=== PATIENT | male | born 1935 | race Caucasian/White ===

== ENCOUNTER 2018-01-18 13:13 | Inpatient (IN) | payer MEDICARE, BC ==
[2018-01-18] MEDS ORDERED: IBUPROFEN 600 MG TAB PO STA (13:30)
[2018-01-18] MEDS ORDERED: ACETAMINOPHEN TAB 500 MG TAB PO STA (13:30)
--- NOTE | 2018-01-18 13:34 | ED ---
General Adult HPI - General Chief complaint: Fever Stated complaint: NEAR SYNCOPE Time Seen by Provider: 01/18/18 13:21 Source: patient, family, EMS, RN notes reviewed Mode of arrival: EMS Limitations: no limitations - History of Present Illness Initial comments: Patient is a pleasant 82-year-old male presenting to the emergency department for weakness and possible syncopal episode. Onset of symptoms started throughout the night. Patient has been shaking. Patient has been urinating more than normal. Patient went to the bathroom prior to arrival and did fall down. Unclear patient lost consciousness or not. Patient does not recall the episode very well. Patient feels weak all over without isolated area of weakness. Patient denies confusion. states patient did seem confused when she found him in the bathroom. Patient denies any injury. No cough. No dyspnea. No abdominal pain. Patient was unaware of fever. - Related Data Home Medications Medication Instructions Recorded Confirmed Leflunomide [Arava] 20 mg PO DAILY 11/12/13 01/18/18 Lisinopril-Hctz 10-12.5 mg 1 tab PO DAILY 01/18/18 01/18/18 [Zestoretic 10-12.5] predniSONE 15 mg PO DAILY 01/18/18 01/18/18 Allergies Allergy/AdvReac Type Severity Reaction Status Date / Time methotrexate Allergy Swelling Verified 01/18/18 14:34 Review of Systems ROS Statement: Those systems with pertinent positive or pertinent negative responses have been documented in the HPI. ROS Other: All systems not noted in ROS Statement are negative. Constitutional: Denies: fever Eyes: Denies: eye pain ENT: Denies: ear pain Respiratory: Denies: cough, dyspnea Cardiovascular: Denies: chest pain Endocrine: Reports: fatigue Gastrointestinal: Denies: abdominal pain Genitourinary: Reports: frequency. Denies: dysuria Musculoskeletal: Reports: back pain (Chronic and unchanged), arthralgia ( Chronic and unchanged) Skin: Denies: rash Neurological: Reports: weakness (Generalized) Past Medical History Past Medical History: Heart Failure, Memory Impairment, Osteoarthritis (OA), Pneumonia, Rheumatoid Arthritis (RA) Additional Past Medical History / Comment(s): Patient relates it is a history of rheumatoid arthritis and has received 4 injections of Remicade. He relates a very little improvement since this has begun. Of note he's had pneumonia in the iliopsoas abscess since this medication has started. History of Any Multi-Drug Resistant Organisms: None Reported Past Surgical History: No Surgical Hx Reported Past Anesthesia/Blood Transfusion Reactions: No Reported Reaction Past Psychological History: No Psychological Hx Reported Smoking Status: Former smoker Past Alcohol Use History: Occasional Past Drug Use History: None Reported General Exam Limitations: no limitations General appearance: alert, in no apparent distress Head exam: Present: atraumatic Eye exam: Present: normal appearance, PERRL, EOMI. Absent: nystagmus ENT exam: Present: normal oropharynx Neck exam: Present: normal inspection. Absent: tenderness, meningismus Respiratory exam: Present: normal lung sounds bilaterally Cardiovascular Exam: Present: tachycardia GI/Abdominal exam: Present: soft. Absent: tenderness Extremities exam: Present: joint swelling (Bilateral ankle swelling that is reported as chronic) Neurological exam: Present: alert, oriented X3, CN II-XII intact. Absent: motor sensory deficit Psychiatric exam: Present: normal affect, normal mood Skin exam: Present: normal color. Absent: rash Course Vital Signs 01/18/18 01/18/18 01/18/18 13:17 14:28 15:25 Temperature 103.2 F H 99.5 F Pulse Rate 138 H 126 H Respiratory 20 20 Rate Blood Pressure 123/58 122/61 O2 Sat by Pulse 93 L 98 Oximetry 01/18/18 16:00 Temperature 98.7 F Pulse Rate Respiratory Rate Blood Pressure 93/54 O2 Sat by Pulse 97 Oximetry - Reevaluation(s) Reevaluation #1: 01/18/18 16:12 Patient does meet sepsis criteria diagnosed at 1612. Blood culture and lactic acid have been ordered. IV antibiotics will be ordered. EKG Findings - EKG Comments: EKG Findings:: Sinus tachycardia 138. IL 142. QRS 80. QT to 70. QTc 49. Normal axis. Normal QRS. No acute ST change. Medical Decision Making - Medical Decision Making Patient reevaluated and does feel better. Patient and family are updated on results and plan. Case was discussed in detail with Dr. Centeno, who will admit for Dr. Becker. She does agree with IV antibiotics. She recommends echo and repeat troponins and EKG in the morning. No cardiology consult at this time. Patient continues to have no chest discomfort. No acute ST-T changes - Lab Data Result diagrams: 01/18/18 13:48 01/18/18 13:48 Lab Results 01/18/18 01/18/18 01/18/18 Range/Units 13:48 13:48 13:48 WBC 6.5 (3.8-10.6) k/uL RBC 5.18 (4.30-5.90) m/uL Hgb 15.0 (13.0-17.5) gm/dL Hct 48.1 (39.0-53.0) % MCV 92.9 (80.0-100.0) fL MCH 28.9 (25.0-35.0) pg MCHC 31.1 (31.0-37.0) g/dL RDW 20.0 H (11.5-15.5) % Plt Count 263 (150-450) k/uL Neutrophils % 92 % Lymphocytes % 4 % Monocytes % 4 % Eosinophils % 0 % Basophils % 0 % Neutrophils # 6.0 (1.3-7.7) k/uL Lymphocytes # 0.2 L (1.0-4.8) k/uL Monocytes # 0.2 (0-1.0) k/uL Eosinophils # 0.0 (0-0.7) k/uL Basophils # 0.0 (0-0.2) k/uL Hypochromasia Slight Anisocytosis Slight Microcytosis Slight PT (9.0-12.0) sec INR (<1.2) APTT (22.0-30.0) sec Sodium 141 (137-145) mmol/L Potassium 4.3 (3.5-5.1) mmol/L Chloride 108 H (98-107) mmol/L Carbon Dioxide 23 (22-30) mmol/L Anion Gap 10 mmol/L BUN 29 H (9-20) mg/dL Creatinine 1.50 H (0.66-1.25) mg/dL Est GFR (CKD-EPI)AfAm 50 (>60 ml/min/1.73 sqM) Est GFR (CKD-EPI)NonAf 44 (>60 ml/min/1.73 sqM) Glucose 112 H (74-99) mg/dL Plasma Lactic Acid Ronan (0.7-2.0) mmol/L Calcium 8.9 (8.4-10.2) mg/dL Total Bilirubin 0.3 (0.2-1.3) mg/dL AST 21 (17-59) U/L ALT 26 (21-72) U/L Alkaline Phosphatase 62 (38-126) U/L Total Creatine Kinase 24 L (55-170) U/L CK-MB (CK-2) <0.2 (0.0-2.4) ng/mL CK-MB (CK-2) Rel Index Troponin I 0.116 H* (0.000-0.034) ng/mL Total Protein 5.8 L (6.3-8.2) g/dL Albumin 3.3 L (3.5-5.0) g/dL Urine Color Urine Appearance (Clear) Urine pH (5.0-8.0) Ur Specific [place] (1.001-1.035) Urine Protein (Negative) Urine Glucose (UA) (Negative) Urine Ketones (Negative) Urine Blood (Negative) Urine Nitrite (Negative) Urine Bilirubin (Negative) Urine Urobilinogen (<2.0) mg/dL Ur Leukocyte Esterase (Negative) Urine RBC (0-5) /hpf Urine WBC (0-5) /hpf Urine WBC Clumps (None) /hpf Urine Bacteria (None) /hpf Cellular Casts (0) /lpf Urine Mucus (None) /hpf 01/18/18 01/18/18 01/18/18 Range/Units 13:48 13:48 15:10 WBC (3.8-10.6) k/uL RBC (4.30-5.90) m/uL Hgb (13.0-17.5) gm/dL Hct (39.0-53.0) % MCV (80.0-100.0) fL MCH (25.0-35.0) pg MCHC (31.0-37.0) g/dL RDW (11.5-15.5) % Plt Count (150-450) k/uL Neutrophils % % Lymphocytes % % Monocytes % % Eosinophils % % Basophils % % Neutrophils # (1.3-7.7) k/uL Lymphocytes # (1.0-4.8) k/uL Monocytes # (0-1.0) k/uL Eosinophils # (0-0.7) k/uL Basophils # (0-0.2) k/uL Hypochromasia Anisocytosis Microcytosis PT 9.9 (9.0-12.0) sec INR 1.0 (<1.2) APTT 20.5 L (22.0-30.0) sec Sodium (137-145) mmol/L Potassium (3.5-5.1) mmol/L Chloride (98-107) mmol/L Carbon Dioxide (22-30) mmol/L Anion Gap mmol/L BUN (9-20) mg/dL Creatinine (0.66-1.25) mg/dL Est GFR (CKD-EPI)AfAm (>60 ml/min/1.73 sqM) Est GFR (CKD-EPI)NonAf (>60 ml/min/1.73 sqM) Glucose (74-99) mg/dL Plasma Lactic Acid Ronan 1.7 (0.7-2.0) mmol/L Calcium (8.4-10.2) mg/dL Total Bilirubin (0.2-1.3) mg/dL AST (17-59) U/L ALT (21-72) U/L Alkaline Phosphatase (38-126) U/L Total Creatine Kinase (55-170) U/L CK-MB (CK-2) (0.0-2.4) ng/mL CK-MB (CK-2) Rel Index Troponin I (0.000-0.034) ng/mL Total Protein (6.3-8.2) g/dL Albumin (3.5-5.0) g/dL Urine Color Yellow Urine Appearance Turbid (Clear) Urine pH 6.0 (5.0-8.0) Ur Specific [place] 1.013 (1.001-1.035) Urine Protein 2+ H (Negative) Urine Glucose (UA) Negative (Negative) Urine Ketones Negative (Negative) Urine Blood Moderate H (Negative) Urine Nitrite Positive (Negative) Urine Bilirubin Negative (Negative) Urine Urobilinogen <2.0 (<2.0) mg/dL Ur Leukocyte Esterase Large H (Negative) Urine RBC 95 H (0-5) /hpf Urine WBC >182 H (0-5) /hpf Urine WBC Clumps Many H (None) /hpf Urine Bacteria Many H (None) /hpf Cellular Casts 28 (0) /lpf Urine Mucus Rare H (None) /hpf - Radiology Data Radiology results: image reviewed (Chest x-ray shows atelectasis, cannot rule out infiltrate) Critical Care Time Critical Care Time: Yes Total Critical Care Time: 33 Disposition Clinical Impression: Sepsis, Urinary tract infection Disposition: ADMITTED IP TO THIS HOSP Condition: Serious Is patient prescribed a controlled substance at d/c from ED?: No Referrals: Phillip Becker MD [Primary Care Provider] - 1-2 days Decision Time: 16:14
[2018-01-18 14:09] LABS: Albumin 3.3 g/dL (3.5-5.0); Calcium 8.9 mg/dL (8.4-10.2); Potassium 4.3 mmol/L (3.5-5.1); Total Bilirubin 0.3 mg/dL (0.2-1.3); Total Protein 5.8 g/dL (6.3-8.2)
[2018-01-18 14:14] LABS: Prothrombin Time 9.9 sec (9.0-12.0)
--- NOTE | 2018-01-18 14:17 | CT ---
EXAMINATION TYPE: CT brain wo con DATE OF EXAM: 01/18/2018 HISTORY: Syncopal episode with confusion CT DLP: 1257 mGycm. Automated Exposure Control for Dose Reduction was Utilized. TECHNIQUE: CT scan of the head is performed without contrast. COMPARISON: None. FINDINGS: There is no acute intracranial hemorrhage or midline shift identified. There is diffuse v entricular and sulcal prominence consistent with diffuse age-related cerebral atrophy. There is low- attenuation in the periventricular white matter consistent with chronic small vessel ischemic change. Patchy soft tissue density right external auditory canal is felt to reflect cerumen. There is moder ate vascular calcification distal internal carotid arteries bilaterally. The globes are intact and th e visualized sinuses are clear. The calvarium is intact. IMPRESSION: No acute intracranial hemorrhage or midline shift. There is mild diffuse age-related ce rebral atrophy and chronic small vessel ischemic change noted.
[2018-01-18 14:18] LABS: Partial Thromboplastin Time 20.5 sec (22.0-30.0)
[2018-01-18] MEDS: SODIUM CHLORIDE 0.9% 500 ML IV SCH ×2 (14:21→15:27)
--- NOTE | 2018-01-18 14:21 | XR ---
EXAMINATION TYPE: XR chest 2V DATE OF EXAM: 01/18/2018 COMPARISON: Prior chest 11/13/2013 HISTORY: Fever and syncope TECHNIQUE: Frontal and lateral views of the chest are obtained. FINDINGS: Patchy basilar density is present bilaterally. Apical pleural thickening. No pneumothorax evident. Heart size is stable. Pulmonary vascularity and jonathan not significantly changed. Patient is r otated. There are overlying cardiac leads and loop recorder. There are calcified pleural plaques at t he left lung base IMPRESSION: Probable basilar atelectasis, correlate to exclude pneumonia. Consider asbestos related disease.
[2018-01-18 14:29] LABS: Anisocytosis Slight; Basophils % (A) 0 %; Eosinophils % (A) 0 %; HCT 48.1 % (39.0-53.0); Hypochromasia Slight; Lymphocytes # (A) 0.2 k/uL (1.0-4.8); Lymphocytes % (A) 4 %; MCH 28.9 pg (25.0-35.0); MCHC 31.1 g/dL (31.0-37.0); MCV 92.9 fL (80.0-100.0); Mean Platelet Volume 6.6; Microcytosis Slight; Monocytes # (A) 0.2 k/uL (0-1.0); Monocytes % (A) 4 %; Neutrophils % (A) 92 %; Platelet Count 263 k/uL (150-450); RBC 5.18 m/uL (4.30-5.90); WBC 6.5 k/uL (3.8-10.6)
[2018-01-18 14:47] LABS: Creatine Kinase 24 U/L (55-170)
[2018-01-18 14:59] LABS: Creatine Kinase MB <0.2 ng/mL (0.0-2.4)
[2018-01-18 15:04] LABS: Troponin I 0.116 ng/mL (0.000-0.034)
[2018-01-18 15:51] LABS: Appearance,Urine Turbid (Clear); Bacteria,Urine Many /hpf; Bilirubin,Urine Negative (Negative); Blood,Urine Moderate (Negative); Cellular Casts,Urine 28 /lpf (0); Color,Urine Yellow; Glucose,Urine (UA) Negative (Negative); Ketones,Urine Negative (Negative); Leukocyte Esterase,Urine Large (Negative); Mucus,Urine Rare /hpf; Nitrite,Urine Positive (Negative); Protein,Urine 2+ (Negative); RBC,Urine 95 /hpf (0-5); Specific Gravity,Urine 1.013 (1.001-1.035); Urobilinogen,Urine <2.0 mg/dL (<2.0); WBC,Urine >182 /hpf (0-5)
[2018-01-18] MEDS ORDERED: SODIUM CHLORIDE 0.9% 1,000 ML IV ONE (16:13)
[2018-01-18] MEDS ORDERED: cefTRIAXone IN SWFI 2,000 MG/20 ML SYRINGE IVP STA (16:14)
[2018-01-18] MEDS ORDERED: NALOXONE 0.4 MG/ML 1 ML VIAL IV PRN (16:15)
[2018-01-18] MEDS ORDERED: ACETAMINOPHEN TAB 325 MG TAB PO PRN (16:15)
[2018-01-18] MEDS: SODIUM CHLORIDE 0.9% 1,000 ML IV SCH (16:48)
[2018-01-18 20:32] LABS: Creatine Kinase MB 0.7 ng/mL (0.0-2.4)
[2018-01-18 20:34] LABS: Troponin I 0.161 ng/mL (0.000-0.034)
[2018-01-19 02:27] LABS: Creatine Kinase MB 1.3 ng/mL (0.0-2.4)
[2018-01-19 02:28] LABS: Troponin I 0.12 ng/mL (0.000-0.034)
[2018-01-19] MEDS: SODIUM CHLORIDE 0.9% 1,000 ML IV SCH ×2 (04:57→08:35)
[2018-01-19] MEDS: cefTRIAXone IN SWFI 1,000 MG/10 ML SYRINGE IVP SCH ×2 (10:33→21:48)
[2018-01-19] MEDS: LIDOCAINE 5% PATCH TOPICAL SCH (13:06)
[2018-01-19] MEDS: predniSONE 5 MG TAB PO SCH (13:07)
[2018-01-19] MEDS ORDERED: ACETAMINOPHEN TAB 325 MG TAB PO PRN (13:47)
[2018-01-19] MEDS ORDERED: ONDANSETRON 4 MG/2 ML VIAL IVP PRN (13:47)
[2018-01-19] MEDS ORDERED: IPRATROPIUM-ALBUTEROL 3 ML NEB INHALATION PRN (13:47)
--- NOTE | 2018-01-19 13:49 | P.HPIM ---
History of Present Illness H&P Date: 01/19/18 Chief Complaint: syncope 82 years old male with past medical history of rheumatoid arthritis, dementia, denies any history of congestive heart failure with no documented in the previous chart to have heart failure presents in with an episode of passing out in the bathroom. Patient is having frequency of urination associated with burning micturition for the past 1 week. He was not drinking enough leak which as he was concerned he had to go to the bathroom again to stop no history of abdominal pain, chest pain, bleeding per rectum, fever or chills given. Patient is on chronic prednisone 15 mg daily for rheumatoid arthritis along with leflunomide making him immunocompromised. Vitals in the ER suggested sinus tachycardia with a heart rate of 138, blood pressure 129/71, fever of 103. Patient was given 2 L of IV fluid, labs were positive for dehydration with a creatinine 1.5 and BUN 29 with a baseline of 0.8. No repeat labs this morning., 0.161, 0.121. EKG was done that suggested sinus tachycardia with T- wave inversion in lead 3 and right bundle branch block. Urinalysis was done that was positive for blood and leukocytes. Urine culture sent patient initiated on ceftriaxone 2 g 20 and was followed by ceftriaxone 1 g every 24 hours Review of Systems Constitutional: Denies chills, Denies fever, endorses lethargy Eyes: denies decreased vision, denies diplopia, denies discharge, denies pain Ears: deny: decreased hearing Ears, nose, mouth and throat: Denies dental pain, Denies headache, Denies nasal discharge, Denies nose pain Cardiovascular: Denies chest pain, Denies decreased exercise tolerance, Denies edema, Denies high blood pressure, Denies irregular heart beat, Denies palpitations, Denies paroxysmal nocturnal dyspnea, Denies rapid heart beat, Denies shortness of breath Respiratory: Denies congestion, Denies cough, Denies cough with sputum, Denies dyspnea, Denies home oxygen, Denies wheezing Gastrointestinal: Denies abdominal pain, Denies change in bowel habits, Denies coffee ground emesis, Denies early satiety, Denies excessive gas, Denies heartburn, Denies hematemesis, Denies hematochezia, Denies loss of appetite, Denies nausea, Denies vomiting Genitourinary: Endorses dysuria, endorses flank pain, Denies kidney stones, Denies menorrhagia, endorses urgency, endorses urinary frequency Musculoskeletal: Denies gait dysfunction, Denies limitation of motion, Denies morning stiffness, Denies muscle cramps Integumentary: Denies rash, Denies wounds, Denies brittle nails, Denies change in hair/nails, Denies darkening of skin Neurological: Denies balance difficulties, Denies change in speech, Denies double vision, Denies gait dysfunction, Denies loss of vision, Denies motor disturbance, Denies numbness, Denies paralysis, Denies paresthesias, Denies seizures Psychiatric: Denies anxiety, Denies depression Endocrine: Denies excessive sweating, Denies excessive thirst, Denies high blood sugars, Denies palpitations Hematologic/Lymphatic: Denies easy bruising, Denies lymphadenopathy Past Medical History Past Medical History: Cancer, COPD, Memory Impairment, Osteoarthritis (OA), Pneumonia, Rheumatoid Arthritis (RA) Additional Past Medical History / Comment(s): Patient relates it is a history of rheumatoid arthritis and has received injections of Remicade.hx of iliopsoas abscess . seizure 2016-not on any meds, uti, prostate cancer-had radiation tx History of Any Multi-Drug Resistant Organisms: None Reported Past Surgical History: Bowel Resection Additional Past Surgical History / Comment(s): loop recorder implanted, bowel sx /colostomy x 6 months- since reversed. lt knee replaced, lt hip replaced Past Anesthesia/Blood Transfusion Reactions: No Reported Reaction Smoking Status: Current every day smoker (Smokes half pack a day for 60 years) - Past Family History Mother Additional Family Medical History / Comment(s): from peritonitis Father Family Medical History: Cancer Additional Family Medical History / Comment(s): prostate cancer Medications and Allergies Home Medications Medication Instructions Recorded Confirmed Type Leflunomide [Arava] 20 mg PO DAILY 11/12/13 01/18/18 History Lisinopril-Hctz 10-12.5 mg 1 tab PO DAILY 01/18/18 01/18/18 History [Zestoretic 10-12.5] predniSONE 15 mg PO DAILY 01/18/18 01/18/18 History Allergies Allergy/AdvReac Type Severity Reaction Status Date / Time methotrexate Allergy Swelling Verified 01/18/18 14:34 Physical Exam Vitals: Vital Signs Temp Pulse Pulse Resp BP BP Pulse Ox 07/12/18 11:27 97.6 F 95 18 146/70 96 01/19/18 08:57 98 01/19/18 08:35 97.5 F L 95 18 129/71 98 01/19/18 04:00 97.6 F 71 18 123/77 99 01/18/18 22:22 97.0 F L 82 16 93/55 99 01/18/18 20:53 98.2 F 80 18 112/61 98 01/18/18 19:00 98.2 F 86 16 95/56 97 01/18/18 18:00 18 105/57 01/18/18 16:53 107 H 18 96/52 93 L 01/18/18 16:00 98.7 F 93/54 97 01/18/18 15:25 99.5 F 01/18/18 14:28 126 H 20 122/61 98 Intake and Output 01/18/18 01/19/18 01/19/18 22:59 06:59 14:59 Intake Total 2250 118 Balance 2250 118 Intake: Amount of Fluid Infused ( 2000 ml) Intake, IV Titration 250 Amount Sodium Chloride 0.9% 1, 250 000 ml @ 125 mls/hr IV . Q8H [facility] Rx#:[id number] Oral 118 Other: Voiding Method Urinal Urinal # Bowel Movements 1 Weight 86.9 kg - Constitutional General appearance: cooperative, no acute distress, obese - EENT Eyes: anicteric sclerae, PERRLA, normal appearance ENT: hearing grossly normal - Neck Neck: no lymphadenopathy, normal ROM, no other, no rigidity, no stridor, no thyromegaly - Respiratory Respiratory: bilateral: CTA, negative: diminished, dullness, rales, rhonchi - Cardiovascular Rhythm: regular Heart sounds: normal: S1, S2 Abnormal Heart Sounds: no systolic murmur, no diastolic murmur, no rub, no S3 Gallop, no S4 Gallop, no click, no other - Gastrointestinal General gastrointestinal: normal bowel sounds, soft, right flank tenderness - Integumentary Integumentary: no rash - Neurologic Neurologic: CNII-XII intact - Musculoskeletal Musculoskeletal: gait normal, strength equal bilaterally - Psychiatric Psychiatric: A&O x's 3, appropriate affect Results CBC & Chem 7: 01/18/18 13:48 01/18/18 13:48 Labs: Abnormal Lab Results - Last 24 Hours (Table) 01/18/18 01/18/18 01/18/18 Range/Units 13:48 13:48 13:48 RDW 20.0 H (11.5-15.5) % Lymphocytes # 0.2 L (1.0-4.8) k/uL APTT (22.0-30.0) sec Chloride 108 H (98-107) mmol/L BUN 29 H (9-20) mg/dL Creatinine 1.50 H (0.66-1.25) mg/dL Glucose 112 H (74-99) mg/dL Total Creatine Kinase 24 L (55-170) U/L Troponin I 0.116 H* (0.000-0.034) ng/mL Total Protein 5.8 L (6.3-8.2) g/dL Albumin 3.3 L (3.5-5.0) g/dL Urine Protein (Negative) Urine Blood (Negative) Ur Leukocyte Esterase (Negative) Urine RBC (0-5) /hpf Urine WBC (0-5) /hpf Urine WBC Clumps (None) /hpf Urine Bacteria (None) /hpf Urine Mucus (None) /hpf 01/18/18 01/18/18 01/18/18 Range/Units 13:48 15:10 19:41 RDW (11.5-15.5) % Lymphocytes # (1.0-4.8) k/uL APTT 20.5 L (22.0-30.0) sec Chloride (98-107) mmol/L BUN (9-20) mg/dL Creatinine (0.66-1.25) mg/dL Glucose (74-99) mg/dL Total Creatine Kinase 50 L (55-170) U/L Troponin I 0.161 H* (0.000-0.034) ng/mL Total Protein (6.3-8.2) g/dL Albumin (3.5-5.0) g/dL Urine Protein 2+ H (Negative) Urine Blood Moderate H (Negative) Ur Leukocyte Esterase Large H (Negative) Urine RBC 95 H (0-5) /hpf Urine WBC >182 H (0-5) /hpf Urine WBC Clumps Many H (None) /hpf Urine Bacteria Many H (None) /hpf Urine Mucus Rare H (None) /hpf 01/19/18 Range/Units 01:22 RDW (11.5-15.5) % Lymphocytes # (1.0-4.8) k/uL APTT (22.0-30.0) sec Chloride (98-107) mmol/L BUN (9-20) mg/dL Creatinine (0.66-1.25) mg/dL Glucose (74-99) mg/dL Total Creatine Kinase (55-170) U/L Troponin I 0.120 H* (0.000-0.034) ng/mL Total Protein (6.3-8.2) g/dL Albumin (3.5-5.0) g/dL Urine Protein (Negative) Urine Blood (Negative) Ur Leukocyte Esterase (Negative) Urine RBC (0-5) /hpf Urine WBC (0-5) /hpf Urine WBC Clumps (None) /hpf Urine Bacteria (None) /hpf Urine Mucus (None) /hpf Microbiology - Last 24 Hours (Table) 01/18/18 14:57 Blood Culture Gram Stain - Final Blood 01/18/18 13:48 Blood Culture Gram Stain - Preliminary Blood 01/18/18 14:57 Blood Culture - Final Blood 01/18/18 13:48 Blood Culture - Final Blood 01/18/18 15:10 Urine Culture - Preliminary Urine,Catheterized Thrombosis Risk Factor Assmnt - DVT/VTE Prophylaxis DVT/VTE Prophylaxis: Pharmacologic Prophylaxis ordered - Choose All That Apply Each Factor Represents 1 point: Obesity (BMI >25) Each Risk Factor Represents 3 Points: Age 75 years or older Thrombosis Risk Factor Assessment Total Risk Factor Score: 4 Thrombosis Risk Factor Assessment Level: Moderate Risk Assessment and Plan Plan: #1 syncope likely secondary to dehydration. Troponin 3 elevated. We will get echocardiogram to rule out cardiogenic syncope. EKG with right bundle branch block and some T-wave inversion in lead 3. Repeat EKG normal sinus rhythm with right bundle branch block. Cardiology to evaluate for anemia. Continue IV fluids 1 25 mL per hour. Status post 2 L IV normal saline given in the ER. #2. Sepsis secondary to urinary tract infection stop ceftriaxone 1 g every 24 hours. Urine culture pending. Concern for pyelonephritis as patient has right flank pain with episodes of fever in the ER. Blood cultures sent negative so far #3 rheumatoid arthritis continue patient on prednisone 15 mg by mouth daily. Hold leflunomide #4 lower extremities edema withhistory of congestive heart failure according to the patient. Echocardiogram ordered. Lisinopril and HCTZ held as patient has dehydration. The right leg slightly bigger than the left leg lower extremity Dopplers ordered #5 DVT prophylaxis with heparin every 12 #6 GI prophylaxis with Pepcid 20 mg daily #7 CODE STATUS full code #8 disposition patient may need 1-2 inpatient nights for stabilization
[2018-01-19] MEDS: IOPAMIDOL-300 CONTRAST 30 ML VIAL (ORAL USE) PO PRN ×2 (14:08→15:00)
[2018-01-19 14:19] LABS: Albumin 2.7 g/dL (3.5-5.0); Calcium 8.2 mg/dL (8.4-10.2); Potassium 4.6 mmol/L (3.5-5.1); Total Bilirubin 0.1 mg/dL (0.2-1.3)
--- NOTE | 2018-01-19 14:20 | P.CRDCN ---
History of Present Illness Consult date: 01/19/18 Requesting physician: Jorge Luis Daily Consult reason: sycope Chief complaint: Syncope History of present illness: This is an 82-year-old gentleman who follows with Dr. Easley in the office. He has past medical history significant for rheumatoid arthritis, hypertension, dementia, presented to the hospital after a syncopal episode. According to the patient and his , and the bathroom and had passed out, when the went into the bathroom, she states he was completely unresponsive. EMS was called and the patient was brought here. Patient does not even recall walking into the bathroom. Patient has been having frequency in urination as well as burning with urination at home. Through the night prior to this episode happening, patient was having chills and documented fever at home. Patient has had syncopal episodes in the past and has also been told to have seizures in the past. He currently has a loop recorder in place because of prior syncopal episode, this has apparently been in place for approximately [address] of the brain was performed which did not reveal any acute intracranial hemorrhage or midline shift. Chest x-ray shows probable basilar atelectasis, correlate to exclude pneumonia. EKG on arrival here shows a sinus tachycardia with S1 Q 3 T3 pattern noted. Blood pressure 146/70 with a heart rate in the 90s, temperature 97.6 is 96% on 2 L of oxygen. Blood pressure on arrival here 103.2. White blood cell count is normal, hemoglobin 15 , platelet count 263. Sodium 141, potassium 4.3, BUN 29, creatinine 1.5, troponins 0.11, 0.16, 0.12. Positive UTI. At the time of my examination this morning, family is at bedside. Patient denies any chest discomfort, no dizziness or lightheadedness. Past Medical History Past Medical History: Cancer, COPD, Memory Impairment, Osteoarthritis (OA), Pneumonia, Rheumatoid Arthritis (RA) Additional Past Medical History / Comment(s): Patient relates it is a history of rheumatoid arthritis and has received injections of Remicade.hx of iliopsoas abscess . seizure 2016-not on any meds, uti, prostate cancer-had radiation tx History of Any Multi-Drug Resistant Organisms: None Reported Past Surgical History: Bowel Resection Additional Past Surgical History / Comment(s): loop recorder implanted, bowel sx /colostomy x 6 months- since reversed. lt knee replaced, lt hip replaced Past Anesthesia/Blood Transfusion Reactions: No Reported Reaction Smoking Status: Current every day smoker (Smokes half pack a day for 60 years) - Past Family History Mother Additional Family Medical History / Comment(s): from peritonitis Father Family Medical History: Cancer Additional Family Medical History / Comment(s): prostate cancer Medications and Allergies Home Medications Medication Instructions Recorded Confirmed Type Leflunomide [Arava] 20 mg PO DAILY 11/12/13 01/18/18 History Lisinopril-Hctz 10-12.5 mg 1 tab PO DAILY 01/18/18 01/18/18 History [Zestoretic 10-12.5] predniSONE 15 mg PO DAILY 01/18/18 01/18/18 History Allergies Allergy/AdvReac Type Severity Reaction Status Date / Time methotrexate Allergy Swelling Verified 01/18/18 14:34 Physical Exam Vitals: Vital Signs Temp Pulse Pulse Resp BP BP Pulse Ox 01/19/18 11:27 97.6 F 95 18 146/70 96 01/19/18 08:57 98 01/19/18 08:35 97.5 F L 95 18 129/71 98 01/19/18 04:00 97.6 F 71 18 123/77 99 01/18/18 22:22 97.0 F L 82 16 93/55 99 01/18/18 20:53 98.2 F 80 18 112/61 98 01/18/18 19:00 98.2 F 86 16 95/56 97 01/18/18 18:00 18 105/57 01/18/18 16:53 107 H 18 96/52 93 L 01/18/18 16:00 98.7 F 93/54 97 01/18/18 15:25 99.5 F 01/18/18 14:28 126 H 20 122/61 98 Intake and Output 01/18/18 01/19/18 01/19/18 22:59 06:59 14:59 Intake Total 2250 293 Balance 2250 293 Intake: Amount of Fluid Infused ( 2000 ml) Intake, IV Titration 250 Amount Sodium Chloride 0.9% 1, 250 000 ml @ 125 mls/hr IV . Q8H FORMERLY [facility], [facility]–1983 Rx#:[id number] Oral 293 Other: Voiding Method Urinal Urinal # Bowel Movements 1 Weight 86.9 kg PHYSICAL EXAMINATION: GENERAL:82-year-old gentleman in no apparent distress at the time of my examination HEENT: Head is atraumatic, normocephalic. Pupils equal, round. Sclera anicteric. Conjunctiva are clear. Mucous membranes of the mouth are moist. Neck is supple. There is no elevated jugular venous pressure.] bruit is heard. HEART EXAMINATION:Heart S1 and S2 soft systolic murmur is heard] CHEST EXAMINATION[ Lungs are clear to auscultation and precussion. No chest wall tenderness is noted on palpation or with deep breathing] ABDOMEN:[ Soft, nontender. Bowel sounds are heard. No organomegaly note]. EXTREMITIES[ 2+ peripheral pulses with plus edema to the right lower extremity ] . NEUROLOGIC[patient is awake, alert and oriented X3.] . Results 01/18/18 13:48 01/18/18 13:48 Cardiac Enzymes 01/18/18 01/18/18 01/18/18 Range/Units 13:48 13:48 19:41 AST 21 (17-59) U/L CK-MB (CK-2) <0.2 0.7 (0.0-2.4) ng/mL Troponin I 0.116 H* 0.161 H* (0.000-0.034) ng/mL 01/19/18 Range/Units 01:22 AST (17-59) U/L CK-MB (CK-2) 1.3 (0.0-2.4) ng/mL Troponin I 0.120 H* (0.000-0.034) ng/mL Coagulation 01/18/18 Range/Units 13:48 PT 9.9 (9.0-12.0) sec APTT 20.5 L (22.0-30.0) sec CBC 01/18/18 Range/Units 13:48 WBC 6.5 (3.8-10.6) k/uL RBC 5.18 (4.30-5.90) m/uL Hgb 15.0 (13.0-17.5) gm/dL Hct 48.1 (39.0-53.0) % Plt Count 263 (150-450) k/uL Comprehensive Metabolic Panel 01/18/18 Range/Units 13:48 Sodium 141 (137-145) mmol/L Potassium 4.3 (3.5-5.1) mmol/L Chloride 108 H (98-107) mmol/L Carbon Dioxide 23 (22-30) mmol/L BUN 29 H (9-20) mg/dL Creatinine 1.50 H (0.66-1.25) mg/dL Glucose 112 H (74-99) mg/dL Calcium 8.9 (8.4-10.2) mg/dL AST 21 (17-59) U/L ALT 26 (21-72) U/L Alkaline Phosphatase 62 (38-126) U/L Total Protein 5.8 L (6.3-8.2) g/dL Albumin 3.3 L (3.5-5.0) g/dL Current Medications Generic Name Dose Route Start Last Admin Trade Name Freq PRN Reason Stop Dose Admin Acetaminophen 650 mg 01/19/18 13:47 Tylenol Tab PO Q6HR PRN Fever and/ or Pain Albuterol/Ipratropium 3 ml 01/19/18 13:47 Duoneb 0.5 Mg-3 Mg/3 Ml Soln INHALATION RT-QID PRN Shortness Of Breath Ceftriaxone Sodium 1,000 mg 01/19/18 09:00 01/19/18 10:33 Rocephin IVP 1,000 mg Q12HR PEG Administration Famotidine 20 mg 01/19/18 14:00 Pepcid PO DAILY FORMERLY [facility], [facility]–1983 Heparin Sodium (Porcine) 5,000 unit 01/19/18 21:00 Heparin SQ Q12HR FOR[facility], [facility]1983 Sodium Chloride 1,000 mls @ 125 mls/hr 01/18/18 16:15 01/19/18 08:35 Saline 0.9% IV Not Given .Q8H PEG Iopamidol 30 ml 01/19/18 13:40 01/19/18 14:08 Isovue-300 30 Ml (For Oral Use) PO 01/20/18 13:40 30 ml Q60M PRN Administration CT Scan Lidocaine 1 patch 01/19/18 11:45 01/19/18 13:06 Lidoderm TOPICAL 1 patch DAILY PEG Administration Naloxone HCl 0.2 mg 01/18/18 16:15 Narcan IV Q2M PRN Opioid Reversal Ondansetron HCl 4 mg 01/19/18 13:47 Zofran IVP Q6HR PRN Nausea And Vomiting Prednisone 15 mg 01/19/18 11:45 01/19/18 13:07 PO 15 mg DAILY PEG Administration Intake and Output 01/18/18 01/19/18 01/19/18 22:59 06:59 14:59 Intake Total 2250 293 Balance 2250 293 Intake: Amount of Fluid Infused ( 2000 ml) Intake, IV Titration 250 Amount Sodium Chloride 0.9% 1, 250 000 ml @ 125 mls/hr IV . Q8H PEG Rx#:[id number] Oral 293 Other: Voiding Method Urinal Urinal # Bowel Movements 1 Weight 86.9 kg 01/18/18 13:48 01/18/18 13:48 EKG Interpretations (text) EKG shows a sinus tachycardia with S1 Q 3 T3 pattern. Assessment and Plan Plan: Assessment and plan #1 syncope, rule out cardiac causes. Could also be secondary to dehydration. #2 abnormal troponins, not consistent with acute coronary syndrome, no significant rise and fall pattern. We will obtain an echocardiogram with Doppler study #3 sepsis, likely secondary to UTI #4 rheumatoid arthritis #5 mild swelling noted to the right lower extremity, no swelling in the left lower extremity. Plan We'll obtain an echo cardiac exam with Doppler study. We will also request a d- dimer and BNP level be obtained. If the d-dimer is elevated, we may need to consider lung perfusion scan to rule out the possibility of pulmonary embolism in the setting of syncope with abnormal troponins. We will also check orthostatic blood pressure and heart rate every shift, and obtain a report of the tracings from a loop monitor to see if the patient have any documented arrhythmias at the time of the syncope. Further recommendations to follow. DNP note has been reviewed, I agree with a documented findings and plan of care. Patient was seen and examined.
--- NOTE | 2018-01-19 16:51 | US ---
EXAMINATION TYPE: US venous doppler duplex LE RT DATE OF EXAM: 01/19/2018 4:34 PM COMPARISON: NONE CLINICAL HISTORY: edema. Right leg swelling x 1 month SIDE PERFORMED: Right TECHNIQUE: The lower extremity deep venous system is examined utilizing real time linear array sonog jose luis with graded compression, doppler sonography and color-flow sonography. VESSELS IMAGED: External Iliac Vein (EIV) Common Femoral Vein Deep Femoral Vein Greater Saphenous Vein * Femoral Vein Popliteal Vein Small Saphenous Vein * Proximal Calf Veins (* superficial vessels) Grayscale, color doppler, spectral doppler imaging performed of the deep veins of the lower extremiti es. There is normal flow, compressibility, vascular waveforms. Right Leg: Appears negative for DVT IMPRESSION: No evident deep venous thrombosis at or above the right knee, follow-up as indicated
--- NOTE | 2018-01-19 16:53 | CT ---
EXAMINATION TYPE: CT abdomen pelvis wo/w con DATE OF EXAM: 01/19/2018 COMPARISON: 11/14/2013 HISTORY: Back pain. CT DLP: 1888.3 mGycm Automated exposure control for dose reduction was used. TECHNIQUE: Helical acquisition of images was performed from the lung bases through the pelvis. CONTRAST: Performed with Oral Contrast and without and with IV Contrast, patient injected with 80ml mL of Isovu e M300. FINDINGS: LUNG BASES: There are trace pleural effusions present with dense pleural plaquing seen posterior medi ally and along the left hemidiaphragm. Multifocal pleural parenchymal scarring and subsegmental atele ctasis are also noted. 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 LIVER/GB: Hepatic cyst is seen adjacent to the gallbladder fossa on series 8 image 35. This measures 1.0 cm. No cholelithiasis. PANCREAS: Unremarkable morphology with no ductal dilatation. 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 ADRENALS: No significant abnormality is seen. KIDNEYS: No evidence of hydronephrosis. Fluid attenuated left renal lesion is overall similar to the prior of 2013 favored to be benign. No nephrolithiasis is seen. FREE AIR: No free air is visualized. ADENOPATHY: No greater than 1 cm short axis lymph nodes are seen within the abdomen or pelvis. REPRODUCTIVE ORGANS: No significant abnormality is seen URINARY BLADDER: Urinary bladder is nondistended with circumferential urinary bladder wall thickenin g and fat stranding in the pelvis. Correlation with urinalysis is recommended to exclude cystitis. OSSEOUS STRUCTURES: Left hip arthroplasty creates extensive spray artifact limiting evaluation of the pelvic structures. Extensive multilevel degenerative changes are seen of the spine. Moderate right f emoral acetabular arthropathy is present. BOWEL: Contrast is seen within the rectum. No evidence of dilated bowel to suggest bowel obstruction . Diffuse thickening of the stomach may relate to incomplete distention, gastritis or other etiology. Appendix is contrast-filled and within normal limits. OTHER: The previously seen left psoas abscess in 2013 and entirely resolved in the interim. Extensive calcific atheromatous changes are seen of the abdominal aorta and its branches. Chronic short segmen t dissection is noted on series 3 image 30 unchanged from the prior. 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 Some fat stranding within the anterior abdominal wall in the right mid abdomen may relate to recent trauma or ecchymosis. Additionally this could relate to subcutaneous injection sites. IMPRESSION: EXTENSIVE URINARY BLADDER WALL THICKENING MAY RELATE TO NONDISTENTION ALTHOUGH THERE ARE INFLAMMATORY CHANGES SURROUNDING THE URINARY BLADDER IN THE PELVIS THEREFORE RECOMMENDATION IS FOR CORRELATION WI TH URINALYSIS TO EXCLUDE CYSTITIS.
--- NOTE | 2018-01-19 17:42 | ECHOF ---
Referral Reason:Fever MEASUREMENTS -------- HEIGHT: 152.4 cm WEIGHT: 86.6 kg BP: 123/77 IVSd: 1.3 cm (0.6 - 1.1) LVIDd: 4.1 cm (3.9 - 5.3) LVPWd: 1.2 cm (0.6 - 1.1) IVSs: 1.7 cm LVIDs: 2.6 cm LVPWs: 1.6 cm LA Diam: 3.1 cm (2.7 - 3.8) LAESV Index (A-L): 32.93 ml/m Ao Diam: 3.9 cm (2.0 - 3.7) LA Diam: 3.0 cm (2.7 - 3.8) AV Cusp: 1.6 cm (1.5 - 2.6) EPSS: 0.7 cm MV E Genaro: 0.96 m/s MV DecT: 259 ms MV A Genaro: 1.57 m/s MV E/A Ratio: 0.61 AV maxP.69 mmHg AV meanP.45 mmHg RAP: 5.00 mmHg RVSP: 38.37 mmHg MV EF SLOPE: 62.45 mm/s (70 - 150) MV EXCURSION: 15.62 mm (> 18.000) FINDINGS -------- Sinus rhythm. This was a technically adequate study. The left ventricular size is normal. There is mild concentric left ventricular hypertrophy. Overa ll left ventricular systolic function is low-normal with, an EF between 50 - 55 %. The right ventricle is normal in size. The left atrial size is normal. LA is midly dilated 29-33ml/m2. The right atrial size is normal. There is mild aortic stenosis present. Peak/mean gradient across the Aortic Valve is 16.69mmHg / 8. 45mmHg. Mild mitral annular calcification present. Mild mitral regurgitation is present. Mild tricuspid regurgitation present. There is mild pulmonary hypertension. The right ventricular systolic pressure, as measured by Doppler, is 38.37mmHg. Trace/mild (physiologic) pulmonic regurgitation. The aortic root size is normal. Echo free space represents a pericardial fat pad. CONCLUSIONS -------- 1. The left ventricular size is normal. 2. There is mild concentric left ventricular hypertrophy. 3. Overall left ventricular systolic function is low-normal with, an EF between 50 - 55 %. 4. The right ventricle is normal in size. 5. The left atrial size is normal. 6. LA is midly dilated 29-33ml/m2. 7. The right atrial size is normal. 8. There is mild aortic stenosis present. 9. Peak/mean gradient across the Aortic Valve is 16.69mmHg / 8.45mmHg. 10. Mild mitral annular calcification present. 11. Mild mitral regurgitation is present. 12. Mild tricuspid regurgitation present. 13. There is mild pulmonary hypertension. 14. The right ventricular systolic pressure, as measured by Doppler, is 38.37mmHg. 15. Trace/mild (physiologic) pulmonic regurgitation. 16. The aortic root size is normal. 17. Echo free space represents a pericardial fat pad. SURVEY SUPERVISOR: Heaven Campo RDCS
[2018-01-19] MEDS: METOPROLOL TARTRATE 25 MG TAB PO SCH (21:47)
[2018-01-19] MEDS: HEPARIN SODIUM,PORCINE 5,000 UNIT/ML 1 ML VIAL SQ SCH (21:48)
[2018-01-20] MEDS: FAMOTIDINE 20 MG TAB PO SCH ×2 (06:36→08:33)
[2018-01-20] MEDS: SODIUM CHLORIDE 0.9% 1,000 ML IV SCH ×5 (06:37→23:19)
[2018-01-20 07:24] LABS: Albumin 2.5 g/dL (3.5-5.0); Potassium 4.6 mmol/L (3.5-5.1); Total Bilirubin 0.1 mg/dL (0.2-1.3); Total Protein 4.8 g/dL (6.3-8.2)
[2018-01-20 07:30] LABS: Anisocytosis Slight; Basophils % (A) 0 %; Eosinophils % (A) 0 %; HCT 30.4 % (39.0-53.0); Hypochromasia Marked; Lymphocytes # (A) 0.4 k/uL (1.0-4.8); Lymphocytes % (A) 6 %; MCHC 29.8 g/dL (31.0-37.0); MCV 94.1 fL (80.0-100.0); Mean Platelet Volume 6.6; Microcytosis Slight; Monocytes # (A) 0.4 k/uL (0-1.0); Monocytes % (A) 5 %; Neutrophils # (A) 5.7 k/uL (1.3-7.7); Neutrophils % (A) 85 %; Platelet Count 326 k/uL (150-450); RBC 3.23 m/uL (4.30-5.90); RDW 19.9 % (11.5-15.5); WBC 6.7 k/uL (3.8-10.6)
[2018-01-20 07:34] LABS: HGB 9.1 gm/dL (13.0-17.5)
[2018-01-20] MEDS: METOPROLOL TARTRATE 25 MG TAB PO SCH ×2 (08:33→21:20)
[2018-01-20] MEDS: cefTRIAXone IN SWFI 1,000 MG/10 ML SYRINGE IVP SCH ×2 (08:33→21:20)
[2018-01-20] MEDS: predniSONE 5 MG TAB PO SCH (08:33)
[2018-01-20] MEDS: HEPARIN SODIUM,PORCINE 5,000 UNIT/ML 1 ML VIAL SQ SCH ×2 (08:33→21:22)
[2018-01-20] MEDS: LIDOCAINE 5% PATCH TOPICAL SCH (08:34)
--- NOTE | 2018-01-20 09:14 | NM ---
EXAMINATION TYPE: NM pul vent and perfuse DATE OF EXAM: 01/20/2018 COMPARISON: Chest x-ray 01/18/[address] scan abdomen and pelvis 01/19/2018 HISTORY: Elevated d-dimer, difficulty breathing and cough TECHNIQUE: Utilizing inhalation of 66.1 mCi Tc 99m DTPA aerosol and intravenous injection of 5.18 mC i of Tc 99m MAA, ventilation and perfusion images are acquired post injection in multiple projections . FINDINGS: Relatively homogenous radiotracer distribution is noted in the lungs. Central clumping of the radioph armaceutical noted on ventilation imaging. Decreased uptake on ventilation and perfusion scanning at the posterior costophrenic sulcus on the left. Chest x-ray dates 2 days prior and shows basilar incre ased density. There is no evidence of mismatched defects. IMPRESSION: Low probability for pulmonary embolism
--- NOTE | 2018-01-20 12:49 | P.PN ---
Subjective Progress Note Date: 01/20/18 82 years old male with past medical history of rheumatoid arthritis, dementia, denies any history of congestive heart failure with no documented in the previous chart to have heart failure presents in with an episode of passing out in the bathroom. Patient is having frequency of urination associated with burning micturition for the past 1 week. He was not drinking enough leak which as he was concerned he had to go to the bathroom again to stop no history of abdominal pain, chest pain, bleeding per rectum, fever or chills given. Patient is on chronic prednisone 15 mg daily for rheumatoid arthritis along with leflunomide making him immunocompromised. Vitals in the ER suggested sinus tachycardia with a heart rate of 138, blood pressure 129/71, fever of 103. Patient was given 2 L of IV fluid, labs were positive for dehydration with a creatinine 1.5 and BUN 29 with a baseline of 0.8. No repeat labs this morning., 0.161, 0.121. EKG was done that suggested sinus tachycardia with T- wave inversion in lead 3 and right bundle branch block. Urinalysis was done that was positive for blood and leukocytes. Urine culture sent patient initiated on ceftriaxone 2 g 20 and was followed by ceftriaxone 1 g every 24 hours 01/20. Patient feeling well. He does continues to have significant pain in the pelvic area. He denies any shortness of breath, chest pain, flank pain, bloody stools or nausea or vomiting. Blood cultures are positive for gram-negative bacilli 4, repeat cultures collected. Urine culture is still showing gram- negative bacilli with no final cultures. Infectious disease will be consulted today with concerns of gram-negative bacteremia. Patient also complains of diarrhea for a month. C. diff and stool cultures sent abdominal exam benign Objective - Vital Signs Vital signs: Vital Signs Temp 96.7 F L 01/20/18 08:00 Pulse 84 01/20/18 08:00 Resp 17 01/20/18 08:00 BP 171/83 01/20/18 08:00 Pulse Ox 100 01/20/18 11:43 Intake & Output 01/19/18 01/20/18 01/20/18 18:59 06:59 18:59 Intake Total 411 360 Output Total 550 700 350 Balance -139 -700 10 Weight 86.1 kg Intake: Oral 411 360 Output: Urine 550 700 350 Other: Voiding Method Urinal Urinal Urinal # Voids 2 2 # Bowel Movements 1 - Exam - Constitutional General appearance: cooperative, no acute distress, obese - EENT Eyes: anicteric sclerae, PERRLA, normal appearance ENT: hearing grossly normal - Neck Neck: no lymphadenopathy, normal ROM, no other, no rigidity, no stridor, no thyromegaly - Respiratory Respiratory: bilateral: CTA, negative: diminished, dullness, rales, rhonchi - Cardiovascular Rhythm: regular Heart sounds: normal: S1, S2 Abnormal Heart Sounds: no systolic murmur, no diastolic murmur, no rub, no S3 Gallop, no S4 Gallop, no click, no other - Gastrointestinal General gastrointestinal: normal bowel sounds, soft, nontender - Integumentary Integumentary: no rash - Neurologic Neurologic: CNII-XII intact - Musculoskeletal Musculoskeletal: strength equal bilaterally - Psychiatric Psychiatric: A&O x's 3, appropriate affect - Labs CBC & Chem 7: 01/20/18 06:34 01/20/18 06:34 Labs: Abnormal Lab Results - Last 24 Hours (Table) 01/19/18 01/19/18 01/20/18 Range/Units 13:41 14:08 06:34 RBC 3.23 L (4.30-5.90) m/uL Hgb 9.1 L D (13.0-17.5) gm/dL Hct 30.4 L (39.0-53.0) % MCHC 29.8 L (31.0-37.0) g/dL RDW 19.9 H (11.5-15.5) % Lymphocytes # 0.4 L (1.0-4.8) k/uL D-Dimer 2.49 H (<0.60) mg/L FEU Chloride 110 H (98-107) mmol/L BUN 26 H (9-20) mg/dL Glucose 127 H (74-99) mg/dL Calcium 8.2 L (8.4-10.2) mg/dL Total Bilirubin 0.1 L (0.2-1.3) mg/dL Total Protein 5.0 L (6.3-8.2) g/dL Albumin 2.7 L (3.5-5.0) g/dL 01/20/18 Range/Units 06:34 RBC (4.30-5.90) m/uL Hgb (13.0-17.5) gm/dL Hct (39.0-53.0) % MCHC (31.0-37.0) g/dL RDW (11.5-15.5) % Lymphocytes # (1.0-4.8) k/uL D-Dimer (<0.60) mg/L FEU Chloride 112 H (98-107) mmol/L BUN (9-20) mg/dL Glucose (74-99) mg/dL Calcium 8.0 L (8.4-10.2) mg/dL Total Bilirubin 0.1 L (0.2-1.3) mg/dL Total Protein 4.8 L (6.3-8.2) g/dL Albumin 2.5 L (3.5-5.0) g/dL Microbiology - Last 24 Hours (Table) 01/18/18 14:57 Blood Culture Gram Stain - Final Blood Blood Culture - Preliminary Gram Neg Bacilli 01/18/18 13:48 Blood Culture Gram Stain - Preliminary Blood Blood Culture - Preliminary Gram Neg Bacilli 01/18/18 15:10 Urine Culture - Preliminary Urine,Catheterized Gram Neg Bacilli Assessment and Plan Plan: #1 syncope likely secondary to dehydration. Troponin 3 elevated. We will get echocardiogram to rule out cardiogenic syncope. EKG with right bundle branch block and some T-wave inversion in lead 3. Repeat EKG normal sinus rhythm with right bundle branch block. Cardiology to evaluate for syncope and troponemia . Continue IV fluids 1 25 mL per hour. Status post 2 L IV normal saline given in the ER. CTA negative for PE #2. Sepsis secondary to urinary tract infection with bacteremia ceftriaxone 1 g every 24 hours. Urine culture pending. Concern for pyelonephritis as patient has right flank pain with episodes of fever in the ER. Blood cultures positive for gram neg bactremia. ABd CT neg for pyelonephritis #3 rheumatoid arthritis continue patient on prednisone 15 mg by mouth daily. Hold leflunomide #4 lower extremities edema withhistory of congestive heart failure according to the patient. Echocardiogram ordered. EF 50 -55 % with mild concentric hypertrophy. Lisinopril and HCTZ held as patient has dehydration. The right leg slightly bigger than the left leg lower extremity Dopplers were negative for DVT #5 DVT prophylaxis with heparin every 12 #6 GI prophylaxis with Pepcid 20 mg daily #7 CODE STATUS full code #8 disposition patient may need 1-2 inpatient nights for stabilization
--- NOTE | 2018-01-20 14:18 | P.PN ---
Subjective Progress Note Date: 01/20/18 This is an 82-year-old gentleman who follows with Dr. Easley in the office. He has past medical history significant for rheumatoid arthritis, hypertension, dementia, presented to the hospital after a syncopal episode. According to the patient and his , and the bathroom and had passed out, when the went into the bathroom, she states he was completely unresponsive. EMS was called and the patient was brought here. Patient does not even recall walking into the bathroom. Patient has been having frequency in urination as well as burning with urination at home. Through the night prior to this episode happening, patient was having chills and documented fever at home. Patient has had syncopal episodes in the past and has also been told to have seizures in the past. He currently has a loop recorder in place because of prior syncopal episode, this has apparently been in place for approximately [address] of the brain was performed which did not reveal any acute intracranial hemorrhage or midline shift. Chest x-ray shows probable basilar atelectasis, correlate to exclude pneumonia. EKG on arrival here shows a sinus tachycardia with S1 Q 3 T3 pattern noted. Blood pressure 146/70 with a heart rate in the 90s, temperature 97.6 is 96% on 2 L of oxygen. Blood pressure on arrival here 103.2. White blood cell count is normal, hemoglobin 15 , platelet count 263. Sodium 141, potassium 4.3, BUN 29, creatinine 1.5, troponins 0.11, 0.16, 0.12. Positive UTI. At the time of my examination this morning, family is at bedside. Patient denies any chest discomfort, no dizziness or lightheadedness. He continues to have lower extremity edema. He does deny complaints of shortness of breath. Objective - Vital Signs Vital signs: Vital Signs Temp 96.7 F L 01/20/18 08:00 Pulse 84 01/20/18 08:00 Resp 17 01/20/18 08:00 BP 171/83 01/20/18 08:00 Pulse Ox 100 01/20/18 11:43 Intake & Output 01/19/18 01/20/18 01/20/18 18:59 06:59 18:59 Intake Total 411 360 Output Total 550 700 350 Balance -139 -700 10 Weight 86.1 kg Intake: Oral 411 360 Output: Urine 550 700 350 Other: Voiding Method Urinal Urinal Urinal # Voids 2 2 # Bowel Movements 1 - Exam PHYSICAL EXAMINATION: HEENT: [Head is atraumatic, normocephalic. Pupils equal, round. Neck is supple. There is no elevated jugular venous pressure.] HEART EXAMINATION: [Heart sounds regular, S1 and S2 a soft systolic murmur.] CHEST EXAMINATION:[ Lungs are clear to auscultation and precussion. No chest wall tenderness is noted on palpation or with deep breathing.] ABDOMEN: [ Soft, nontender. Bowel sounds are heard. No organomegaly noted]. EXTREMITIES:[ 2+ peripheral pulses with evidence of 1-2+ peripheral edema and no calf tenderness noted]. NEUROLOGIC [patient is awake, alert and oriented x3.] . - Labs CBC & Chem 7: 01/20/18 06:34 01/20/18 06:34 Labs: Abnormal Lab Results - Last 24 Hours (Table) 01/19/18 01/19/18 01/20/18 Range/Units 13:41 14:08 06:34 RBC 3.23 L (4.30-5.90) m/uL Hgb 9.1 L D (13.0-17.5) gm/dL Hct 30.4 L (39.0-53.0) % MCHC 29.8 L (31.0-37.0) g/dL RDW 19.9 H (11.5-15.5) % Lymphocytes # 0.4 L (1.0-4.8) k/uL D-Dimer 2.49 H (<0.60) mg/L FEU Chloride 110 H (98-107) mmol/L BUN 26 H (9-20) mg/dL Glucose 127 H (74-99) mg/dL Calcium 8.2 L (8.4-10.2) mg/dL Total Bilirubin 0.1 L (0.2-1.3) mg/dL Total Protein 5.0 L (6.3-8.2) g/dL Albumin 2.7 L (3.5-5.0) g/dL 01/20/18 Range/Units 06:34 RBC (4.30-5.90) m/uL Hgb (13.0-17.5) gm/dL Hct (39.0-53.0) % MCHC (31.0-37.0) g/dL RDW (11.5-15.5) % Lymphocytes # (1.0-4.8) k/uL D-Dimer (<0.60) mg/L FEU Chloride 112 H (98-107) mmol/L BUN (9-20) mg/dL Glucose (74-99) mg/dL Calcium 8.0 L (8.4-10.2) mg/dL Total Bilirubin 0.1 L (0.2-1.3) mg/dL Total Protein 4.8 L (6.3-8.2) g/dL Albumin 2.5 L (3.5-5.0) g/dL Microbiology - Last 24 Hours (Table) 01/18/18 14:57 Blood Culture Gram Stain - Final Blood Blood Culture - Preliminary Gram Neg Bacilli 01/18/18 13:48 Blood Culture Gram Stain - Preliminary Blood Blood Culture - Preliminary Gram Neg Bacilli 01/18/18 15:10 Urine Culture - Preliminary Urine,Catheterized Gram Neg Bacilli Assessment and Plan Assessment: #1 syncope, rule out cardiac causes. Could also be secondary to dehydration. #2 abnormal troponins, not consistent with acute coronary syndrome, no significant rise and fall pattern. We will obtain an echocardiogram with Doppler study #3 sepsis, likely secondary to UTI #4 rheumatoid arthritis #5 mild swelling noted to the right lower extremity, no swelling in the left lower extremity. Plan: from cardiology's perspective, we will add a small dose of Lasix 20 mg by mouth daily. We'll continue to follow the patient provide further recommendations accordingly. Echocardiogram was reviewed and showed an ejection fraction of 50- 55% with mild aortic stenosis and mild mitral regurgitation. H[employer] ERGONOMIST note has been reviewed, I agree with a documented findings and plan of care. Patient was seen and examined.
[2018-01-20] MEDS: FUROSEMIDE 20 MG TAB PO SCH (14:36)
[2018-01-20] MEDS: FERROUS SULFATE 325 MG TAB PO SCH (14:36)
--- NOTE | 2018-01-20 16:38 | P.CONS ---
History of Present Illness - Reason for Consult Consult date: 01/20/18 UTI, bacteremia - History of Present Illness Mr. Gibbs is an 82-year-old gentleman known to ID services as he was seen in 2013 for left iliopsoas abscess underwent I&D and perforation into the peritoneal cavity, found to have had nicked bowel. He was then transferred to [facility] for further care with extensive stay. He underwent bowel resection with colostomy placement followed by reversal.Two years ago he was also treated for prostate cancer under the care of Dr. Correa. Regarding his rheumatoid arthritis , he is on prednisone and leflunomide which are currently on hold during this admission. Patient presented to [facility] with frequent urination, burning with urination for one week. He cut back on his oral fluid intake to decrease his trips sto the bathroom to void. He denies abdominal pain. He presented with sinus tachycardia with a heart rate of 138, blood pressure 129/71, fever of 103. Patient was given 2 L of IV fluid, labs were positive for dehydration with a creatinine 1.5 and BUN 29 with a baseline of 0.8. Troponins 0.161, 0.121. EKG was done that suggested sinus tachycardia with T-wave inversion in lead 3 and right bundle branch block. Urinalysis was done that was positive for blood and leukocytes. Urine culture sent patient initiated on ceftriaxone 2 g 20 and was followed by ceftriaxone 1 g every 24 hours. Subsequently, blood culture is positive for gram-negative bacilli and thus this consult was requested. Patient also states he has had low hemoglobin for the past 6 weeks and has had a workup and started on oral ferrous sulfate. He states he has periodic diarrhea and now having 2-3 stools per day. Repeat blood culture, stool culture and c diff were ordered today. Review of Systems All systems: negative Constitutional: Reports chills, Reports fatigue, Reports fever Eyes: denies blurred vision, denies pain Ears, nose, mouth and throat: Denies headache, Denies sore throat Cardiovascular: Denies chest pain, Denies shortness of breath Respiratory: Denies cough Gastrointestinal: Reports diarrhea, Denies abdominal pain, Denies nausea, Denies vomiting Genitourinary: Reports dysuria, Reports urinary frequency Musculoskeletal: Denies myalgias Integumentary: Denies pruritus, Denies rash Neurological: Denies numbness, Denies weakness Psychiatric: Denies anxiety, Denies depression Endocrine: Denies fatigue, Denies weight change Past Medical History Past Medical History: Cancer, COPD, Memory Impairment, Osteoarthritis (OA), Pneumonia, Rheumatoid Arthritis (RA) Additional Past Medical History / Comment(s): Patient relates it is a history of rheumatoid arthritis and has received injections of Remicade.hx of iliopsoas abscess . seizure 2016-not on any meds, uti, prostate cancer-had radiation tx History of Any Multi-Drug Resistant Organisms: None Reported Past Surgical History: Bowel Resection Additional Past Surgical History / Comment(s): loop recorder implanted, bowel sx /colostomy x 6 months- since reversed. lt knee replaced, lt hip replaced Past Anesthesia/Blood Transfusion Reactions: No Reported Reaction Smoking Status: Current every day smoker (Smokes half pack a day for 60 years) - Past Family History Mother Additional Family Medical History / Comment(s): from peritonitis Father Family Medical History: Cancer Additional Family Medical History / Comment(s): prostate cancer Medications and Allergies Home Medications Medication Instructions Recorded Confirmed Type Leflunomide [Arava] 20 mg PO DAILY 11/12/13 01/18/18 History Lisinopril-Hctz 10-12.5 mg 1 tab PO DAILY 01/18/18 01/18/18 History [Zestoretic 10-12.5] predniSONE 15 mg PO DAILY 01/18/18 01/18/18 History Allergies Allergy/AdvReac Type Severity Reaction Status Date / Time methotrexate Allergy Swelling Verified 01/18/18 14:34 Physical Exam Vitals: Vital Signs Temp Pulse Resp BP BP Pulse Ox 01/20/18 08:00 96.7 F L 84 17 170/86 171/83 97 01/20/18 04:00 97.7 F 82 18 149/93 99 01/20/18 00:00 98.0 F 87 17 145/69 99 01/19/18 20:00 98.4 F 95 16 161/85 100 01/19/18 16:00 98.1 F 93 16 146/79 97 01/19/18 11:27 97.6 F 95 18 146/70 96 Intake and Output 01/19/18 01/20/18 01/20/18 22:59 06:59 14:59 Intake Total 118 360 Output Total 700 350 Balance -582 10 Intake: Oral 118 360 Output: Urine 700 350 Other: Voiding Method Urinal Urinal Urinal # Voids 2 Weight 86.1 kg - Constitutional General appearance: average body habitus, cooperative, no acute distress - EENT Eyes: dentition normal, normal appearance ENT: hard of hearing - Neck Neck: no lymphadenopathy, normal ROM, no rigidity - Respiratory Respiratory: bilateral: CTA, negative: diminished, rales, rhonchi, wheezing - Cardiovascular Rhythm: regular Heart sounds: normal: S1, S2 - Gastrointestinal General gastrointestinal: no distended, normal bowel sounds, soft, no tenderness - Neurologic Neurologic: CNII-XII intact - Psychiatric Psychiatric: A&O x's 3, appropriate affect, intact judgment & insight Results Results: Laboratory Results WBC 6.7 k/uL (3.8-10.6) 01/20/18 06:34 RBC 3.23 m/uL (4.30-5.90) L 01/20/18 06:34 Hgb 9.1 gm/dL (13.0-17.5) L D 01/20/18 06:34 Hct 30.4 % (39.0-53.0) L 01/20/18 06:34 MCV 94.1 fL (80.0-100.0) 01/20/18 06:34 MCH 28.0 pg (25.0-35.0) 01/20/18 06:34 MCHC 29.8 g/dL (31.0-37.0) L 01/20/18 06:34 RDW 19.9 % (11.5-15.5) H 01/20/18 06:34 Plt Count 326 k/uL (150-450) 01/20/18 06:34 Neutrophils % 85 % 01/20/18 06:34 Lymphocytes % 6 % 01/20/18 06:34 Monocytes % 5 % 01/20/18 06:34 Eosinophils % 0 % 01/20/18 06:34 Basophils % 0 % 01/20/18 06:34 Neutrophils # 5.7 k/uL (1.3-7.7) 01/20/18 06:34 Lymphocytes # 0.4 k/uL (1.0-4.8) L 01/20/18 06:34 Monocytes # 0.4 k/uL (0-1.0) 01/20/18 06:34 Eosinophils # 0.0 k/uL (0-0.7) 01/20/18 06:34 Basophils # 0.0 k/uL (0-0.2) 01/20/18 06:34 Hypochromasia Marked 01/20/18 06:34 Anisocytosis Slight 01/20/18 06:34 Microcytosis Slight 01/20/18 06:34 PT 9.9 sec (9.0-12.0) 01/18/18 13:48 INR 1.0 (<1.2) 01/18/18 13:48 APTT 20.5 sec (22.0-30.0) L 01/18/18 13:48 D-Dimer 2.49 mg/L FEU (<0.60) H 01/19/18 14:08 Sodium 140 mmol/L (137-145) 01/20/18 06:34 Potassium 4.6 mmol/L (3.5-5.1) 01/20/18 06:34 Chloride 112 mmol/L (98-107) H 01/20/18 06:34 Carbon Dioxide 23 mmol/L (22-30) 01/20/18 06:34 Anion Gap 5 mmol/L 01/20/18 06:34 BUN 18 mg/dL (9-20) 01/20/18 06:34 Creatinine 1.05 mg/dL (0.66-1.25) 01/20/18 06:34 Est GFR (CKD-EPI)AfAm 78 (>60 ml/min/1.73 sqM) 01/20/18 06:34 Est GFR (CKD-EPI)NonAf 67 (>60 ml/min/1.73 sqM) 01/20/18 06:34 Glucose 87 mg/dL (74-99) 01/20/18 06:34 Plasma Lactic Acid [place] 1.7 mmol/L (0.7-2.0) 01/18/18 13:48 Calcium 8.0 mg/dL (8.4-10.2) L 01/20/18 06:34 Total Bilirubin 0.1 mg/dL (0.2-1.3) L 01/20/18 06:34 AST 24 U/L (17-59) 01/20/18 06:34 ALT 27 U/L (21-72) 01/20/18 06:34 Alkaline Phosphatase 47 U/L (38-126) 01/20/18 06:34 Total Creatine Kinase 59 U/L (55-170) 01/19/18 01:22 CK-MB (CK-2) 1.3 ng/mL (0.0-2.4) 01/19/18 01:22 CK-MB (CK-2) Rel Index 2.2 01/19/18 01:22 Troponin I 0.120 ng/mL (0.000-0.034) H* 01/19/18 01:22 NT-Pro-B Natriuret Pep 2810 pg/mL 01/19/18 15:55 Total Protein 4.8 g/dL (6.3-8.2) L 01/20/18 06:34 Albumin 2.5 g/dL (3.5-5.0) L 01/20/18 06:34 Urine Color Yellow 01/18/18 15:10 Urine Appearance Turbid (Clear) 01/18/18 15:10 Urine pH 6.0 (5.0-8.0) 01/18/18 15:10 Ur Specific [place] 1.013 (1.001-1.035) 01/18/18 15:10 Urine Protein 2+ (Negative) H 01/18/18 15:10 Urine Glucose (UA) Negative (Negative) 01/18/18 15:10 Urine Ketones Negative (Negative) 01/18/18 15:10 Urine Blood Moderate (Negative) H 01/18/18 15:10 Urine Nitrite Positive (Negative) 01/18/18 15:10 Urine Bilirubin Negative (Negative) 01/18/18 15:10 Urine Urobilinogen <2.0 mg/dL (<2.0) 01/18/18 15:10 Ur Leukocyte Esterase Large (Negative) H 01/18/18 15:10 Urine RBC 95 /hpf (0-5) H 01/18/18 15:10 Urine WBC >182 /hpf (0-5) H 01/18/18 15:10 Urine WBC Clumps Many /hpf (None) H 01/18/18 15:10 Urine Bacteria Many /hpf (None) H 01/18/18 15:10 Cellular Casts 28 /lpf (0) 01/18/18 15:10 Urine Mucus Rare /hpf (None) H 01/18/18 15:10 CBC & Chem 7: 01/20/18 06:34 01/20/18 06:34 Labs: Abnormal Lab Results - Last 24 Hours (Table) 01/19/18 01/19/18 01/20/18 Range/Units 13:41 14:08 06:34 RBC 3.23 L (4.30-5.90) m/uL Hgb 9.1 L D (13.0-17.5) gm/dL Hct 30.4 L (39.0-53.0) % MCHC 29.8 L (31.0-37.0) g/dL RDW 19.9 H (11.5-15.5) % Lymphocytes # 0.4 L (1.0-4.8) k/uL D-Dimer 2.49 H (<0.60) mg/L FEU Chloride 110 H (98-107) mmol/L BUN 26 H (9-20) mg/dL Glucose 127 H (74-99) mg/dL Calcium 8.2 L (8.4-10.2) mg/dL Total Bilirubin 0.1 L (0.2-1.3) mg/dL Total Protein 5.0 L (6.3-8.2) g/dL Albumin 2.7 L (3.5-5.0) g/dL 01/20/18 Range/Units 06:34 RBC (4.30-5.90) m/uL Hgb (13.0-17.5) gm/dL Hct (39.0-53.0) % MCHC (31.0-37.0) g/dL RDW (11.5-15.5) % Lymphocytes # (1.0-4.8) k/uL D-Dimer (<0.60) mg/L FEU Chloride 112 H (98-107) mmol/L BUN (9-20) mg/dL Glucose (74-99) mg/dL Calcium 8.0 L (8.4-10.2) mg/dL Total Bilirubin 0.1 L (0.2-1.3) mg/dL Total Protein 4.8 L (6.3-8.2) g/dL Albumin 2.5 L (3.5-5.0) g/dL Microbiology - Last 24 Hours (Table) 01/18/18 14:57 Blood Culture Gram Stain - Final Blood Blood Culture - Preliminary Gram Neg Bacilli 01/18/18 13:48 Blood Culture Gram Stain - Preliminary Blood Blood Culture - Preliminary Gram Neg Bacilli 01/18/18 15:10 Urine Culture - Preliminary Urine,Catheterized Gram Neg Bacilli Assessment and Plan Plan: This is an 82-year-old male patient presenting with sepsis, gram-negative bacteremia secondary to urinary tract infection. Patient is currently on Ceftriaxone which will be continued. Initial blood culture and urine culture are showing gram-negative bacilli. Repeat blood culture has been obtained. Stool studies are in progress for diarrhea. Continue supportive care. Further recommendations as patient progresses. The above dictated assessment and findings were discussed with Dr. Gama. The impression and plan of care have been directed as dictated. Nadiya Wang nurse practitioner acting as scribe for Dr. Gama.
[2018-01-20] MEDS: LISINOPRIL 5 MG TAB PO SCH (16:42)
[2018-01-20 16:54] VITALS: RESP 18
--- NOTE | 2018-01-20 20:57 | P.CON ---
Consult Note - . Consult date: 01/20/18 Assessment/Plan:: Mr. Gibbs is an 82-year-old gentleman known to ID services as he was seen in 2013 for left iliopsoas abscess underwent I&D and perforation into the peritoneal cavity, found to have had nicked bowel. He was then transferred to [facility] for further care with extensive stay. He underwent bowel resection with colostomy placement followed by reversal.Two years ago he was also treated for prostate cancer under the care of Dr. Correa. Regarding his rheumatoid arthritis , he is on prednisone and leflunomide which are currently on hold during this admission. Patient presented to [facility] with frequent urination, burning with urination for one week. He cut back on his oral fluid intake to decrease his trips sto the bathroom to void. He denies abdominal pain. He presented with sinus tachycardia with a heart rate of 138, blood pressure 129/71, fever of 103. Patient was given 2 L of IV fluid, labs were positive for dehydration with a creatinine 1.5 and BUN 29 with a baseline of 0.8. Troponins 0.161, 0.121. EKG was done that suggested sinus tachycardia with T-wave inversion in lead 3 and right bundle branch block. Urinalysis was done that was positive for blood and leukocytes. Urine culture sent patient initiated on ceftriaxone 2 g IVPB and was followed by ceftriaxone 1 g every 24 hours. Subsequently, blood culture is positive for gram-negative bacilli and thus this consult was requested. Patient also states he has had low hemoglobin for the past 6 weeks and has had a workup and started on oral ferrous sulfate. He states he has periodic diarrhea and now having 2-3 stools per day. Repeat blood culture, stool culture and c diff were ordered today. Please see the consult note is dictated by nurse practitioner Nadiya Felipe. This pleasant gentleman was having ongoing urinary symptoms with increasing burning and discomfort with urination. At presentation he had high-grade fever chills and evidence of sepsis. With fluid resuscitation and antibiotic therapy starting to feel slightly better. As noted there is urine culture with gram- negative bacilli as well as blood cultures with gram-negative bacilli. The patient is having some diarrhea and stool for C. diff toxin has been requested. Fortunately with the above treatments his fever has improved and he is feeling somewhat better overall. The computed tomography scan did show evidence of the cystitis. If he does not have rapid improvement of his urinary symptoms he may then need cystoscopy to further evaluate the abnormality to the bladder. Fortunately this time is showing some improvement will continue current antibiotic therapy and culture will help determine the options of antibiotic therapy at discharge, and whether or not an oral option will exist. Continue supportive care with fluids. He is fortunately more comfortable. I agree with evaluation, assessment and plan as dictated by nurse practitioner Mrs. Nadiya Wang.
[2018-01-21 06:29] LABS: Anisocytosis Moderate; Basophils % (A) 0 %; Eosinophils % (A) 1 %; HCT 29.9 % (39.0-53.0); Hypochromasia Marked; Lymphocytes # (A) 0.6 k/uL (1.0-4.8); Lymphocytes % (A) 11 %; MCH 27.9 pg (25.0-35.0); MCV 92.9 fL (80.0-100.0); Microcytosis Slight; Monocytes # (A) 0.3 k/uL (0-1.0); Monocytes % (A) 6 %; Neutrophils # (A) 4.4 k/uL (1.3-7.7); Neutrophils % (A) 79 %; Platelet Count 311 k/uL (150-450); RBC 3.22 m/uL (4.30-5.90); RDW 20.3 % (11.5-15.5); WBC 5.5 k/uL (3.8-10.6)
[2018-01-21 06:52] LABS: ALT 36 U/L (21-72); AST 35 U/L (17-59); Albumin 2.8 g/dL (3.5-5.0); Alkaline Phosphatase 52 U/L (38-126); Anion Gap 6 mmol/L; Blood Urea Nitrogen 19 mg/dL (9-20); Calcium 8.5 mg/dL (8.4-10.2); Carbon Dioxide 24 mmol/L (22-30); Chloride 112 mmol/L (98-107); Glucose 88 mg/dL (74-99); Potassium 4.3 mmol/L (3.5-5.1); Sodium 142 mmol/L (137-145); Total Bilirubin <0.1 mg/dL (0.2-1.3); Total Protein 5.3 g/dL (6.3-8.2)
[2018-01-21] MEDS: FUROSEMIDE 20 MG TAB PO SCH (08:44)
[2018-01-21] MEDS: SODIUM CHLORIDE 0.9% 1,000 ML IV SCH (08:44)
[2018-01-21] MEDS: METOPROLOL TARTRATE 25 MG TAB PO SCH (08:44)
[2018-01-21] MEDS: FAMOTIDINE 20 MG TAB PO SCH (08:44)
[2018-01-21] MEDS: HEPARIN SODIUM,PORCINE 5,000 UNIT/ML 1 ML VIAL SQ SCH (08:45)
[2018-01-21] MEDS: LISINOPRIL 5 MG TAB PO SCH (08:45)
[2018-01-21] MEDS: LIDOCAINE 5% PATCH TOPICAL SCH (08:45)
[2018-01-21] MEDS: predniSONE 5 MG TAB PO SCH (08:46)
--- NOTE | 2018-01-21 09:20 | P.DS ---
Providers Date of admission: 01/18/18 16:15 Attending physician: Jorge Luis Daily MD Consults: 01/19/18 11:43 Consult Physician Routine Consulting Provider: Rupesh Curtis Consult Reason/Comments: syncope Do you want consulting provider notified?: Yes 01/20/18 11:11 Consult Physician Routine Consulting Provider: Jewel Gama Consult Reason/Comments: UTI, bacteremia Do you want consulting provider notified?: Yes Primary care physician: Phillip Becker [facility] Course: This is 82 years old male who presented to the hospital with urinary symptoms and dehydration patient urine culture turned to be positive for E. coli sensitive to everything and his blood cultures came back also positive for same organism patient received total of 4 days of IV antibiotics during this hospital stay was up ambulating in the islas and tolerating diet and stated that he is 100% back at baseline patient requested to be discharged today as he has family commitment and he will follow-up with his primary care physician on Tuesday patient was seen by infectious disease who recommended continuation of antibiotics and can be switched to oral I changed patient to Omnicef 300 mg twice daily for 10 days and asked patient to follow-up closely with his primary care physician patient understood discharge instructions which was discussed in the presence of the nursing staff and was discharged home in stable condition Patient Condition at Discharge: Serious Plan - Discharge Summary Discharge Rx Participant: Yes New Discharge Prescriptions: No Action Leflunomide [Arava] 20 mg PO DAILY predniSONE 15 mg PO DAILY Lisinopril-Hctz 10-12.5 mg [Zestoretic 10-12.5] 1 tab PO DAILY Discharge Medication List Leflunomide [Arava] 20 mg PO DAILY 11/12/13 [History] Lisinopril-Hctz 10-12.5 mg [Zestoretic 10-12.5] 1 tab PO DAILY 01/18/18 [History ] predniSONE 15 mg PO DAILY 01/18/18 [History] Follow up Appointment(s)/Referral(s): Melvin Correa MD [STAFF PHYSICIAN] - 1 Week Jewel Gama MD [STAFF PHYSICIAN] - 1 Week Phillip Becker MD [Primary Care Provider] - 01/31/18 2:30 pm (Tuesday) Vivian Easley MD [STAFF PHYSICIAN] - 1 Week
[2018-01-21 09:40] VITALS: BP 153/85; PULSE 75; TEMP 97.4
[2018-01-21] MEDS: cefTRIAXone IN SWFI 1,000 MG/10 ML SYRINGE IVP SCH (10:10)
[2018-01-21] MEDS: FERROUS SULFATE 325 MG TAB PO SCH (11:09)
== END 2018-01-21 11:48 | disposition home or self-care (01) | DRG 872 ==
LOC: EC 13:13 → 6SEL 16:15
PROVIDERS: ADMIT Internal Medicine; ATTEND Internal Medicine
DX: A41.51 Sepsis due to Escherichia coli [E. coli] (principal); J98.11 Atelectasis; E86.0 Dehydration; F03.90 Unspecified dementia, unspecified severity, without behavioral disturbance, psychotic disturbance, mood disturbance, and anxiety; F17.210 Nicotine dependence, cigarettes, uncomplicated; I45.10 Unspecified right bundle-branch block; J44.9 Chronic obstructive pulmonary disease, unspecified; M06.9 Rheumatoid arthritis, unspecified; N30.90 Cystitis, unspecified without hematuria; Z79.52 Long term (current) use of systemic steroids; Z80.42 Family history of malignant neoplasm of prostate; Z85.46 Personal history of malignant neoplasm of prostate; Z96.652 Presence of left artificial knee joint; R74.8 Abnormal levels of other serum enzymes; Z92.3 Personal history of irradiation; Z87.01 Personal history of pneumonia (recurrent); Z88.8 Allergy status to other drugs, medicaments and biological substances; R55 Syncope and collapse; Z90.49 Acquired absence of other specified parts of digestive tract; R19.7 Diarrhea, unspecified; M79.89 Other specified soft tissue disorders; I10 Essential (primary) hypertension; M19.90 Unspecified osteoarthritis, unspecified site; Z96.642 Presence of left artificial hip joint
CPT/HCPCS: 36415; 70450; 71046; 74178; 78582; 80053; 81001; 82550; 82553; 83605; 83880; 84484; 85025; 85379; 85610; 85730; 87040; 87077; 87086; 87186; 93005; 93306; 94760; 96361; 96374; 99291

== ENCOUNTER 2019-04-11 08:02 | Emergency (ER) | payer MEDICARE, BC ==
[2019-04-11] MEDS ORDERED: VANCOMYCIN IV PER PHARMACY 1 EACH MISC MISCELLANE PRN (08:20)
[2019-04-11] MEDS ORDERED: ACETAMINOPHEN TAB 500 MG TAB PO STA (08:20)
[2019-04-11] MEDS ORDERED: PIPERACILLIN-TAZOBACTAM 3.375 GM in SODIUM CHLORIDE 0.9% 100 ML IVPB STA (08:20)
[2019-04-11] MEDS ORDERED: VANCOMYCIN 1,500 MG in SODIUM CHLORIDE 0.9% 250 ML IVPB STA (08:24)
--- NOTE | 2019-04-11 08:35 | ED ---
General Adult HPI - General Chief complaint: Altered Mental Status Stated complaint: Not feeling well Time Seen by Provider: 04/11/19 08:08 Source: EMS Mode of arrival: EMS Limitations: altered mental status - History of Present Illness Initial comments: Dictation was produced using [employer] dictation software. please excuse any grammatical, word or spelling errors. Chief Complaint: 83-year-old male with past medical history of pneumonia, UTI, prostate cancer and COPD presents with generalized weakness. History of Present Illness: It is 83-year-old male presents today for generalized weakness. Patient is brought in by EMS. Patient allegedly had some weakness that started yesterday. She was so weak. Difficulty ambulating. Patient is a poor historian at this time. Accompanying the patient is family. states that he has been a little more altered than usual. He does have a history of memory deficit and impairment patient's history of rheumatoid arthritis. Patient states he been coughing. He does also complain of some mild epigastric tenderness. Patient has been admitted for bacteremia sepsis from urine and lung infection. The ROS documented in this emergency department record has been reviewed and confirmed by me. Those systems with pertinent positive or negative responses have been documented in the HPI. All other systems are other negative and/or noncontributory. PHYSICAL EXAM: General Impression: Alert and oriented x3, lethargic HEENT: Normocephalic atraumatic, extra-ocular movements intact, pupils equal and reactive to light bilaterally, dry mucous membranes, pale conjunctiva Cardiovascular: Tachycardic Chest: Diffuse lung rhonchi Abdomen: Bowel sounds present, abdomen soft, mild diffuse abdominal tenderness, non-distended, no organomegaly Musculoskeletal: Pulses present and equal in all extremities, no peripheral edema, no joint swelling or joint erythema or joint pain. Motor: no focal deficits noted Neurological: CN II-XII grossly intact, no focal motor or sensory deficits noted Skin: Intact with no visualized rashes, no sacral decubitus ulcer : No erythema or palpable crepitus to the perineum or groin ED course: 83-year-old male presents with generalized weakness. Patient is a poor historian. He is brought today by EMS for altered mental status and genera lized weakness. As upon arrival shows temperature 12.5, heart rate 135, 93% on 3 L nasal cannula. Blood pressure 144/102. Clinical presentation concerning for severe sepsis given temperature, altered mental status. He does remain normotensive at this time. She also has evidence of hypoxic respiratory failure with oxygen requirements. Return evaluation obtained. Leukopenia 2.6 with hemoglobin 10.4. Patient has a normal coag panel. Metabolic panel shows CO2 of 18 with a gap of 15. Creatin ine is elevated 2.37 with a BUN of 44. Lactic acidosis 8.7. Chest x-ray shows patchy right infrahilar density which may reflect pneumonia. Computed tomography scan of the brain was unremarkable. The scan of the abdomen and pelvis without contrast was obtained showing no acute processes. Urinalysis does not show signs of urinary tract infection. Awaiting disposition to the intensive care unit patient became bradycardic and had a weakened pulse. CPR was initiated right away. Rapid sequence intubation was performed using standard technique with good bilateral breath sounds and color change postintubation. Patient had return of spontaneous circulation. It was made known to me that patient was DO NOT RESUSCITATE after the initial resuscitation attempt with successful return of spontaneous circulation. Discuss code of care with family. They report that they would not like to perform any resuscitative measures should he have cardiac arrest again. They were agreeable to placement of triple lumen catheter for medical management. Repeat EKG was performed showing sinus tachycardia with hyperacute T waves. While waiting in the emergency room family was agreeable to medical management at this time. They wanted to wait for family to arrive before they make any further definitive decisions. Discussed patient case with Dr. Feliciano and Dr. Escalera who are willing to accept patients care. Patient's blood pressure began to decrease and patient was started on pressors. EKG interpretation: Ventricular rate 142, sinus tachycardia,. WA interval 170, QRS 96, QTC 464. No WA prolongation, no QTC prolongation, no ST or T-wave changes noted. - Related Data Home Medications Medication Instructions Recorded Confirmed Leflunomide [Arava] 20 mg PO DAILY 11/12/13 04/11/19 predniSONE 15 mg PO DAILY 01/18/18 04/11/19 Ferrous Sulfate [Iron (65 MG 325 mg PO DAILY 04/11/19 04/11/19 Elemental)] Lisinopril [Zestril] 15 mg PO DAILY 04/11/19 04/11/19 Naproxen Sodium [Aleve] 440 mg PO BID PRN 04/11/19 04/11/19 Allergies Allergy/AdvReac Type Severity Reaction Status Date / Time methotrexate Allergy Swelling Verified 04/11/19 09:25 Review of Systems ROS Statement: Those systems with pertinent positive or pertinent negative responses have been documented in the HPI. ROS Other: All systems not noted in ROS Statement are negative. Past Medical History Past Medical History: Cancer, COPD, Memory Impairment, Osteoarthritis (OA), Pneumonia, Rheumatoid Arthritis (RA) Additional Past Medical History / Comment(s): Patient relates it is a history of rheumatoid arthritis and has received injections of Remicade.hx of iliopsoas abscess . seizure 2016-not on any meds, uti, prostate cancer-had radiation tx History of Any Multi-Drug Resistant Organisms: None Reported Past Surgical History: Bowel Resection Additional Past Surgical History / Comment(s): loop recorder implanted, bowel s x/colostomy x 6 months- since reversed. lt knee replaced, lt hip replaced Past Anesthesia/Blood Transfusion Reactions: No Reported Reaction Past Psychological History: No Psychological Hx Reported Smoking Status: Current every day smoker - Past Family History Mother Additional Family Medical History / Comment(s): from peritonitis Father Family Medical History: Cancer Additional Family Medical History / Comment(s): prostate cancer General Exam Limitations: altered mental status Course Vital Signs 04/11/19 04/11/19 04/11/19 08:15 09:41 09:43 Temperature 102.5 F H 99.4 F Pulse Rate 135 H 120 H Respiratory 19 16 Rate Blood Pressure 144/102 119/80 O2 Sat by Pulse 93 L Oximetry 04/11/19 11:00 Temperature 97.6 F Pulse Rate 84 Respiratory 18 Rate Blood Pressure 109/60 O2 Sat by Pulse 95 Oximetry Procedures - Central Line Placement Left SC Consent Obtained: verbal consent Patient Placed on Monitor/Pulse Ox: Yes MD Prep: mask, gown, gloves Central Line Prep: Chlorhexidine scrub Ultrasound Used for Placement: No Central Line Lumen Inserted: triple Bloods Obtained for Lab: No Central Line Position: good blood return, all ports aspirated, flushed, capped, sutured in place with 3-0 nylon Dressing Applied: Tegaderm Post Procedure X-Ray: tip of catheter in good position Patient Tolerated Procedure: well - Intubation Laryngoscope: Davis Size: 4 ET Tube Size: 7.5 ET Tube Uncuffed: No Tube Secured Depth (cm): 24 Tube Secured Location: lips Tube Placement Confirmation: visualized tube passing through cords, equal breath sounds bilaterally, no breath sounds over epigastrium, confirmation by capnometry Patient Tolerated Procedure: well Intubation Complications: none Medical Decision Making - Lab Data Result diagrams: 04/11/19 08:44 04/11/19 08:44 Lab Results 04/11/19 04/11/19 04/11/19 Range/Units 08:44 08:44 08:44 WBC 2.6 L (3.8-10.6) k/uL RBC 3.61 L (4.30-5.90) m/uL Hgb 10.4 L (13.0-17.5) gm/dL Hct 34.4 L (39.0-53.0) % MCV 95.4 (80.0-100.0) fL MCH 28.9 (25.0-35.0) pg MCHC 30.3 L (31.0-37.0) g/dL RDW 15.7 H (11.5-15.5) % Plt Count 397 (150-450) k/uL Neutrophils % (Manual) 85 % Band Neutrophils % 6 % Lymphocytes % (Manual) 7 % Monocytes % (Manual) 2 % Neutrophils # (Manual) 2.30 (1.3-7.7) k/uL Lymphocytes # (Manual) 0.18 L (1.0-4.8) k/uL Monocytes # (Manual) 0.05 (0-1.0) k/uL Nucleated RBCs 0 (0-0) /100 WBC Manual Slide Review Performed Large Platelets Present Hypochromasia Marked Poikilocytosis (manual Present PT (9.0-12.0) sec INR (<1.2) APTT (22.0-30.0) sec Sodium 142 (137-145) mmol/L Potassium 4.3 (3.5-5.1) mmol/L Chloride 109 H (98-107) mmol/L Carbon Dioxide 18 L (22-30) mmol/L Anion Gap 15 mmol/L BUN 44 H (9-20) mg/dL Creatinine 2.37 H (0.66-1.25) mg/dL Est GFR (CKD-EPI)AfAm 29 (>60 ml/min/1.73 sqM) Est GFR (CKD-EPI)NonAf 25 (>60 ml/min/1.73 sqM) Glucose 116 H (74-99) mg/dL POC Glucose (mg/dL) (75-99) mg/dL POC Glu It Systems Analyst Consultant ID Plasma Lactic Acid Ronan 8.7 H* (0.7-2.0) mmol/L Calcium 9.0 (8.4-10.2) mg/dL Total Bilirubin 0.6 (0.2-1.3) mg/dL AST 84 H (17-59) U/L ALT 26 (21-72) U/L Alkaline Phosphatase 87 (38-126) U/L Total Protein 6.1 L (6.3-8.2) g/dL Albumin 3.2 L (3.5-5.0) g/dL Urine Color Urine Appearance (Clear) Urine pH (5.0-8.0) Ur Specific [place] (1.001-1.035) Urine Protein (Negative) Urine Glucose (UA) (Negative) Urine Ketones (Negative) Urine Blood (Negative) Urine Nitrite (Negative) Urine Bilirubin (Negative) Urine Urobilinogen (<2.0) mg/dL Ur Leukocyte Esterase (Negative) Urine RBC (0-5) /hpf Urine WBC (0-5) /hpf Hyaline Casts (0-2) /lpf Urine Mucus (None) /hpf 04/11/19 04/11/19 04/11/19 Range/Units 08:44 11:00 11:31 WBC (3.8-10.6) k/uL RBC (4.30-5.90) m/uL Hgb (13.0-17.5) gm/dL Hct (39.0-53.0) % MCV (80.0-100.0) fL MCH (25.0-35.0) pg MCHC (31.0-37.0) g/dL RDW (11.5-15.5) % Plt Count (150-450) k/uL Neutrophils % (Manual) % Band Neutrophils % % Lymphocytes % (Manual) % Monocytes % (Manual) % Neutrophils # (Manual) (1.3-7.7) k/uL Lymphocytes # (Manual) (1.0-4.8) k/uL Monocytes # (Manual) (0-1.0) k/uL Nucleated RBCs (0-0) /100 WBC Manual Slide Review Large Platelets Hypochromasia Poikilocytosis (manual PT 10.0 (9.0-12.0) sec INR 0.9 (<1.2) APTT 18.0 L (22.0-30.0) sec Sodium (137-145) mmol/L Potassium (3.5-5.1) mmol/L Chloride (98-107) mmol/L Carbon Dioxide (22-30) mmol/L Anion Gap mmol/L BUN (9-20) mg/dL Creatinine (0.66-1.25) mg/dL Est GFR (CKD-EPI)AfAm (>60 ml/min/1.73 sqM) Est GFR (CKD-EPI)NonAf (>60 ml/min/1.73 sqM) Glucose (74-99) mg/dL POC Glucose (mg/dL) 60 L (75-99) mg/dL POC Glu It Systems Analyst Consultant ID Norman, Dalia Plasma Lactic Acid Ronan (0.7-2.0) mmol/L Calcium (8.4-10.2) mg/dL Total Bilirubin (0.2-1.3) mg/dL AST (17-59) U/L ALT (21-72) U/L Alkaline Phosphatase (38-126) U/L Total Protein (6.3-8.2) g/dL Albumin (3.5-5.0) g/dL Urine Color Yellow Urine Appearance Cloudy (Clear) Urine pH 5.0 (5.0-8.0) Ur Specific [place] 1.013 (1.001-1.035) Urine Protein Trace H (Negative) Urine Glucose (UA) Negative (Negative) Urine Ketones Negative (Negative) Urine Blood Negative (Negative) Urine Nitrite Negative (Negative) Urine Bilirubin Negative (Negative) Urine Urobilinogen <2.0 (<2.0) mg/dL Ur Leukocyte Esterase Negative (Negative) Urine RBC <1 (0-5) /hpf Urine WBC 2 (0-5) /hpf Hyaline Casts 7 H (0-2) /lpf Urine Mucus Rare H (None) /hpf 04/11/19 04/11/19 Range/Units 11:35 11:53 WBC (3.8-10.6) k/uL RBC (4.30-5.90) m/uL Hgb (13.0-17.5) gm/dL Hct (39.0-53.0) % MCV (80.0-100.0) fL MCH (25.0-35.0) pg MCHC (31.0-37.0) g/dL RDW (11.5-15.5) % Plt Count (150-450) k/uL Neutrophils % (Manual) % Band Neutrophils % % Lymphocytes % (Manual) % Monocytes % (Manual) % Neutrophils # (Manual) (1.3-7.7) k/uL Lymphocytes # (Manual) (1.0-4.8) k/uL Monocytes # (Manual) (0-1.0) k/uL Nucleated RBCs (0-0) /100 WBC Manual Slide Review Large Platelets Hypochromasia Poikilocytosis (manual PT (9.0-12.0) sec INR (<1.2) APTT (22.0-30.0) sec Sodium (137-145) mmol/L Potassium (3.5-5.1) mmol/L Chloride (98-107) mmol/L Carbon Dioxide (22-30) mmol/L Anion Gap mmol/L BUN (9-20) mg/dL Creatinine (0.66-1.25) mg/dL Est GFR (CKD-EPI)AfAm (>60 ml/min/1.73 sqM) Est GFR (CKD-EPI)NonAf (>60 ml/min/1.73 sqM) Glucose (74-99) mg/dL POC Glucose (mg/dL) 31 L 112 H (75-99) mg/dL POC Glu It Systems Analyst Consultant ID Toshia Betancourt Taylor Plasma Lactic Acid Ronan (0.7-2.0) mmol/L Calcium (8.4-10.2) mg/dL Total Bilirubin (0.2-1.3) mg/dL AST (17-59) U/L ALT (21-72) U/L Alkaline Phosphatase (38-126) U/L Total Protein (6.3-8.2) g/dL Albumin (3.5-5.0) g/dL Urine Color Urine Appearance (Clear) Urine pH (5.0-8.0) Ur Specific [place] (1.001-1.035) Urine Protein (Negative) Urine Glucose (UA) (Negative) Urine Ketones (Negative) Urine Blood (Negative) Urine Nitrite (Negative) Urine Bilirubin (Negative) Urine Urobilinogen (<2.0) mg/dL Ur Leukocyte Esterase (Negative) Urine RBC (0-5) /hpf Urine WBC (0-5) /hpf Hyaline Casts (0-2) /lpf Urine Mucus (None) /hpf Critical Care Time Critical Care Time: Yes Total Critical Care Time: 31 Disposition Clinical Impression: Sepsis, Cardiac arrest Disposition: ADMITTED IP TO THIS [facility] Condition: Critical Referrals: Phillip Becker MD [Primary Care Provider] - 1-2 days Decision Time: 12:03
[2019-04-11] MEDS: SODIUM CHLORIDE 0.9% 500 ML 500 ML IV SCH ×3 (08:39→09:29)
[2019-04-11 09:07] LABS: HCT 34.4 % (39.0-53.0); HGB 10.4 gm/dL (13.0-17.5); Hypochromasia Marked; MCH 28.9 pg (25.0-35.0); MCHC 30.3 g/dL (31.0-37.0); MCV 95.4 fL (80.0-100.0); Mean Platelet Volume 6.3; Platelet Count 397 k/uL (150-450); RBC 3.61 m/uL (4.30-5.90); RDW 15.7 % (11.5-15.5); WBC 2.6 k/uL (3.8-10.6)
[2019-04-11 09:09] LABS: Albumin 3.2 g/dL (3.5-5.0); Potassium 4.3 mmol/L (3.5-5.1); Total Bilirubin 0.6 mg/dL (0.2-1.3); Total Protein 6.1 g/dL (6.3-8.2)
[2019-04-11 09:21] LABS: INR 0.9 (<1.2)
--- NOTE | 2019-04-11 09:43 | XR ---
EXAMINATION TYPE: XR chest 2V DATE OF EXAM: 04/11/2019 COMPARISON: 01/18/2018 HISTORY: Shortness of breath TECHNIQUE: Frontal and lateral views of the chest are obtained. FINDINGS: Scattered senescent parenchymal changes noted. Hyperinflation compatible with COPD. Patchy right infrahilar density noted but may reflect pneumonia. Correlate clinically and progress st udies are recommended. Heart size is stable. Mediastinal structures are stable and grossly unremarkable. No evidence for hilar prominence. Degenerative changes dorsal spine. IMPRESSION: 1. Patchy right infrahilar density noted but may reflect pneumonia. Correlate clinically and progress studies are recommended.
[2019-04-11 09:48] LABS: Band Neutrophils % 6 %; Lymphocytes # (M) 0.18 k/uL (1.0-4.8); Monocytes # (M) 0.05 k/uL (0-1.0); Neutrophils % (M) 85 %; Nucleated Red Blood Cells 0 /100 WBC (0-0); Total Cells Counted 100
[2019-04-11 09:49] LABS: Large Platelets Present; Poikilocytosis (M) Present
--- NOTE | 2019-04-11 10:40 | CT ---
EXAMINATION TYPE: CT brain wo con DATE OF EXAM: 04/11/2019 HISTORY: Altered mental status CT DLP: 842.8 mGycm. Automated Exposure Control for Dose Reduction was Utilized. TECHNIQUE: CT scan of the head is performed without contrast. COMPARISON: CT brain January 18, 2018 FINDINGS: There is no acute intracranial hemorrhage or midline shift identified. There is diffuse v entricular and sulcal prominence consistent with diffuse age-related cerebral atrophy. There is low- attenuation in the periventricular white matter consistent with chronic small vessel ischemic change. . Soft tissue density left external auditory canal is thought to reflect cerumen axial image 12 more prominent from prior. The globes are intact and the visualized sinuses are clear. IMPRESSION: No acute intracranial hemorrhage or midline shift. There is [id number] diffuse ag e-related cerebral atrophy and chronic small vessel ischemic change redemonstrated without significan t interval change.
--- NOTE | 2019-04-11 10:45 | CT ---
EXAMINATION TYPE: CT abdomen pelvis wo con DATE OF EXAM: 04/11/2019 HISTORY: severe abdominal pain CT DLP: 1078.4 mGycm. Automated Exposure Control for Dose Reduction was Utilized. TECHNIQUE: CT scan of the abdomen and pelvis is performed without oral or IV contrast. COMPARISON: CT abdomen and pelvis January 19, 2018 FINDINGS: Within the limitations of a non-contrast study, the following observations are made. LUNG BASES: Chronically elevated left hemidiaphragm with calcified pleural plaque and chronic consoli dation. Calcified pleural plaque right lung base with pleural thickening. Linear and nodular scarlike opacity periphery right middle lobe axial image 19 is stable. Scattered bibasilar linear scarring an d/or atelectasis. Calcification at level of mitral and aortic valve. Moderate coronary calcification. LIVER/GB: No significant abnormality is appreciated. PANCREAS: No significant abnormality is seen. SPLEEN: No significant abnormality is seen. ADRENALS: No significant abnormality is seen. KIDNEYS: Cortical thinning in both kidneys. Occasional small hypodense lesion. Complex simple thin-wa lled cyst. Bladder shows persistent mild to moderate concentric wall thickening superiorly. Correlate clinically to exclude recurrent acute cystitis. Findings presumably related to relative obstruction from prior prostate pathology. BOWEL: No significant abnormality is seen. GENITAL ORGANS: Gold therapy seeds in normal-sized prostate is noted. LYMPH NODES: No greater than 1cm abdominal or pelvic lymph nodes are appreciated. OSSEOUS STRUCTURES: Metallic hardware from left hip arthroplasty causes streak artifact limiting eval uation of pelvic structures. Straightening of spine on sagittal images. Moderate to severe disc space narrowing and spurring with vacuum disc phenomenon L4-L5 and L5-S1 levels. Slight scoliotic curvatur e with multilevel spurring on coronal images. Some asymmetric narrowing and sclerosis right sacroilia c joint is redemonstrated. OTHER: Moderate to severe calcified plaque of the aorta extends into branch vessels. IMPRESSION: No bowel obstruction. No new or acute findings clearly evident on this study.
[2019-04-11] MEDS ORDERED: EPINEPHrine 10 ML SYRINGE (0.1 MG/ML) ONE (11:05)
[2019-04-11] MEDS ORDERED: NOREPINEPHRINE 1 MG/ML 4 ML VIAL IV ONE (11:05)
[2019-04-11] MEDS ORDERED: ATROPINE SULFATE 0.1 MG/ML 10ML SYRINGE ONE (11:05)
[2019-04-11] MEDS ORDERED: DEXTROSE 5% IN WATER 250 ML BAG IV ONE (11:05)
[2019-04-11] MEDS ORDERED: DEXTROSE 50% SYRINGE 50 ML IVP ONE (11:05)
[2019-04-11 11:07] VITALS: RESP 18; TEMP 97.6
[2019-04-11 11:17] LABS: Appearance,Urine Cloudy (Clear); Bilirubin,Urine Negative (Negative); Blood,Urine Negative (Negative); Color,Urine Yellow; Glucose,Urine (UA) Negative (Negative); Hyaline Casts,Urine 7 /lpf (0-2); Ketones,Urine Negative (Negative); Leukocyte Esterase,Urine Negative (Negative); Mucus,Urine Rare /hpf; Nitrite,Urine Negative (Negative); Protein,Urine Trace (Negative); RBC,Urine <1 /hpf (0-5); Specific Gravity,Urine 1.013 (1.001-1.035); Urobilinogen,Urine <2.0 mg/dL (<2.0); WBC,Urine 2 /hpf (0-5)
[2019-04-11 11:34] LABS: Glucose,Whole Blood 60 mg/dL (75-99)
[2019-04-11 11:37] LABS: Glucose,Whole Blood 31 mg/dL (75-99)
[2019-04-11] MEDS ORDERED: NALOXONE 0.4 MG/ML 1 ML VIAL IV PRN (11:45)
[2019-04-11] MEDS ORDERED: NOREPINEPHRINE 32 MG in SODIUM CHLORIDE 0.9% 218 ML IV SCH (11:45)
[2019-04-11] MEDS ORDERED: NOREPINEPHRINE 4 MG in SODIUM CHLORIDE 0.9% 250 ML IV ONE (11:45)
[2019-04-11 11:56] LABS: Glucose,Whole Blood 112 mg/dL (75-99)
--- NOTE | 2019-04-11 11:58 | XR ---
EXAMINATION TYPE: XR chest 1V confirm line plcil DATE OF EXAM: 04/11/2019 COMPARISON: 04/11/2019 HISTORY: Central line placement TECHNIQUE: Single frontal view of the chest is obtained. FINDINGS: Left-sided central line seen with tip overlying the SVC and no sizable pneumothorax. Bilat eral consolidation and pleural effusion again noted and there is evidence of cardiomegaly. Underlying COPD suggested. Arthropathy of the shoulders. ET and NG tube noted with the ET tube approximately 4 cm above the nathalia and the NG tube seen with the tip in the left upper quadrant of the abdomen likel y within the gastric fundus. IMPRESSION: 1. ET and NG tube with left-sided central line appear in good position. 2. Increasing pleural-parenchymal changes in the be on the basis of worsening pneumonia or CHF. Corre late clinically.
[2019-04-11 12:00] VITALS: BP 136/88; PULSE 100
--- NOTE | 2019-04-11 12:21 | ED ---
Medical Decision Making - Lab Data Result diagrams: 04/11/19 08:44 04/11/19 08:44 Lab Results 04/11/19 04/11/19 04/11/19 Range/Units 08:44 08:44 08:44 WBC 2.6 L (3.8-10.6) k/uL RBC 3.61 L (4.30-5.90) m/uL Hgb 10.4 L (13.0-17.5) gm/dL Hct 34.4 L (39.0-53.0) % MCV 95.4 (80.0-100.0) fL MCH 28.9 (25.0-35.0) pg MCHC 30.3 L (31.0-37.0) g/dL RDW 15.7 H (11.5-15.5) % Plt Count 397 (150-450) k/uL Neutrophils % (Manual) 85 % Band Neutrophils % 6 % Lymphocytes % (Manual) 7 % Monocytes % (Manual) 2 % Neutrophils # (Manual) 2.30 (1.3-7.7) k/uL Lymphocytes # (Manual) 0.18 L (1.0-4.8) k/uL Monocytes # (Manual) 0.05 (0-1.0) k/uL Nucleated RBCs 0 (0-0) /100 WBC Manual Slide Review Performed Large Platelets Present Hypochromasia Marked Poikilocytosis (manual Present PT (9.0-12.0) sec INR (<1.2) APTT (22.0-30.0) sec Sodium 142 (137-145) mmol/L Potassium 4.3 (3.5-5.1) mmol/L Chloride 109 H (98-107) mmol/L Carbon Dioxide 18 L (22-30) mmol/L Anion Gap 15 mmol/L BUN 44 H (9-20) mg/dL Creatinine 2.37 H (0.66-1.25) mg/dL Est GFR (CKD-EPI)AfAm 29 (>60 ml/min/1.73 sqM) Est GFR (CKD-EPI)NonAf 25 (>60 ml/min/1.73 sqM) Glucose 116 H (74-99) mg/dL POC Glucose (mg/dL) (75-99) mg/dL POC Glu Clinical Research Management Associate ID Lactic Ac Sepsis Rflx Plasma Lactic Acid Ronan 8.7 H* (0.7-2.0) mmol/L Calcium 9.0 (8.4-10.2) mg/dL Total Bilirubin 0.6 (0.2-1.3) mg/dL AST 84 H (17-59) U/L ALT 26 (21-72) U/L Alkaline Phosphatase 87 (38-126) U/L Total Protein 6.1 L (6.3-8.2) g/dL Albumin 3.2 L (3.5-5.0) g/dL Urine Color Urine Appearance (Clear) Urine pH (5.0-8.0) Ur Specific [place] (1.001-1.035) Urine Protein (Negative) Urine Glucose (UA) (Negative) Urine Ketones (Negative) Urine Blood (Negative) Urine Nitrite (Negative) Urine Bilirubin (Negative) Urine Urobilinogen (<2.0) mg/dL Ur Leukocyte Esterase (Negative) Urine RBC (0-5) /hpf Urine WBC (0-5) /hpf Hyaline Casts (0-2) /lpf Urine Mucus (None) /hpf 04/11/19 04/11/19 04/11/19 Range/Units 08:44 09:17 11:00 WBC (3.8-10.6) k/uL RBC (4.30-5.90) m/uL Hgb (13.0-17.5) gm/dL Hct (39.0-53.0) % MCV (80.0-100.0) fL MCH (25.0-35.0) pg MCHC (31.0-37.0) g/dL RDW (11.5-15.5) % Plt Count (150-450) k/uL Neutrophils % (Manual) % Band Neutrophils % % Lymphocytes % (Manual) % Monocytes % (Manual) % Neutrophils # (Manual) (1.3-7.7) k/uL Lymphocytes # (Manual) (1.0-4.8) k/uL Monocytes # (Manual) (0-1.0) k/uL Nucleated RBCs (0-0) /100 WBC Manual Slide Review Large Platelets Hypochromasia Poikilocytosis (manual PT 10.0 (9.0-12.0) sec INR 0.9 (<1.2) APTT 18.0 L (22.0-30.0) sec Sodium (137-145) mmol/L Potassium (3.5-5.1) mmol/L Chloride (98-107) mmol/L Carbon Dioxide (22-30) mmol/L Anion Gap mmol/L BUN (9-20) mg/dL Creatinine (0.66-1.25) mg/dL Est GFR (CKD-EPI)AfAm (>60 ml/min/1.73 sqM) Est GFR (CKD-EPI)NonAf (>60 ml/min/1.73 sqM) Glucose (74-99) mg/dL POC Glucose (mg/dL) (75-99) mg/dL POC Glu Clinical Research Management Associate ID Lactic Ac Sepsis Rflx Y Plasma Lactic Acid Ronan (0.7-2.0) mmol/L Calcium (8.4-10.2) mg/dL Total Bilirubin (0.2-1.3) mg/dL AST (17-59) U/L ALT (21-72) U/L Alkaline Phosphatase (38-126) U/L Total Protein (6.3-8.2) g/dL Albumin (3.5-5.0) g/dL Urine Color Yellow Urine Appearance Cloudy (Clear) Urine pH 5.0 (5.0-8.0) Ur Specific [place] 1.013 (1.001-1.035) Urine Protein Trace H (Negative) Urine Glucose (UA) Negative (Negative) Urine Ketones Negative (Negative) Urine Blood Negative (Negative) Urine Nitrite Negative (Negative) Urine Bilirubin Negative (Negative) Urine Urobilinogen <2.0 (<2.0) mg/dL Ur Leukocyte Esterase Negative (Negative) Urine RBC <1 (0-5) /hpf Urine WBC 2 (0-5) /hpf Hyaline Casts 7 H (0-2) /lpf Urine Mucus Rare H (None) /hpf 04/11/19 04/11/19 Range/Units 11:31 11:35 WBC (3.8-10.6) k/uL RBC (4.30-5.90) m/uL Hgb (13.0-17.5) gm/dL Hct (39.0-53.0) % MCV (80.0-100.0) fL MCH (25.0-35.0) pg MCHC (31.0-37.0) g/dL RDW (11.5-15.5) % Plt Count (150-450) k/uL Neutrophils % (Manual) % Band Neutrophils % % Lymphocytes % (Manual) % Monocytes % (Manual) % Neutrophils # (Manual) (1.3-7.7) k/uL Lymphocytes # (Manual) (1.0-4.8) k/uL Monocytes # (Manual) (0-1.0) k/uL Nucleated RBCs (0-0) /100 WBC Manual Slide Review Large Platelets Hypochromasia Poikilocytosis (manual PT (9.0-12.0) sec INR (<1.2) APTT (22.0-30.0) sec Sodium (137-145) mmol/L Potassium (3.5-5.1) mmol/L Chloride (98-107) mmol/L Carbon Dioxide (22-30) mmol/L Anion Gap mmol/L BUN (9-20) mg/dL Creatinine (0.66-1.25) mg/dL Est GFR (CKD-EPI)AfAm (>60 ml/min/1.73 sqM) Est GFR (CKD-EPI)NonAf (>60 ml/min/1.73 sqM) Glucose (74-99) mg/dL POC Glucose (mg/dL) 60 L 31 L (75-99) mg/dL POC Glu Clinical Research Management Associate ID Dalia Norman Kylee Lactic Ac Sepsis Rflx Plasma Lactic Acid Ronan (0.7-2.0) mmol/L Calcium (8.4-10.2) mg/dL Total Bilirubin (0.2-1.3) mg/dL AST (17-59) U/L ALT (21-72) U/L Alkaline Phosphatase (38-126) U/L Total Protein (6.3-8.2) g/dL Albumin (3.5-5.0) g/dL Urine Color Urine Appearance (Clear) Urine pH (5.0-8.0) Ur Specific [place] (1.001-1.035) Urine Protein (Negative) Urine Glucose (UA) (Negative) Urine Ketones (Negative) Urine Blood (Negative) Urine Nitrite (Negative) Urine Bilirubin (Negative) Urine Urobilinogen (<2.0) mg/dL Ur Leukocyte Esterase (Negative) Urine RBC (0-5) /hpf Urine WBC (0-5) /hpf Hyaline Casts (0-2) /lpf Urine Mucus (None) /hpf Disposition Clinical Impression: Sepsis, Cardiac arrest Disposition: Condition: Undetermined Time of Disposition: 12:21 Preliminary Cause of : cardiac arrest
[2019-04-12] MEDS ORDERED: VANCOMYCIN 1,500 MG in SODIUM CHLORIDE 0.9% 250 ML IVPB ONE (09:00)
[2019-04-12] MEDS ORDERED: PANTOPRAZOLE 40 MG/10 ML VIAL IV SCH (09:00)
== END 2019-04-11 14:00 | disposition expired ==
LOC: EC 08:02 → 2SICU 11:45 → UNDOADMIN 11:45 → EC 14:00
DX: I46.9 Cardiac arrest, cause unspecified (principal); A41.9 Sepsis, unspecified organism; R91.8 Other nonspecific abnormal finding of lung field; R00.0 Tachycardia, unspecified; R94.31 Abnormal electrocardiogram [ECG] [EKG]; J44.9 Chronic obstructive pulmonary disease, unspecified; M06.9 Rheumatoid arthritis, unspecified; F17.200 Nicotine dependence, unspecified, uncomplicated; Z79.899 Other long term (current) drug therapy; Z88.8 Allergy status to other drugs, medicaments and biological substances; Z85.46 Personal history of malignant neoplasm of prostate; Z92.3 Personal history of irradiation
CPT/HCPCS: 99291; 36556; 31500; 92950; 96365; 96367; 96366; 96361; 36415; 93005; 80053; 83605; 85025; 85610; 85730; 81001; 87040; 87086; 71046; 70450; 74176; J2543; J3370; J0461; J0171; 94002